=== PATIENT | male | born 1975 | race Caucasian/White ===

== ENCOUNTER 2017-01-17 20:15 | Emergency (ER) | payer OTHER ==
[~2017-01-17] VITALS: Ht 180.3 cm; Wt 96.0 kg
[~2017-01-17 20:15] MED LIST: ACYC-57 PO; ASPI81TA28 PO; CALC-354 PO; CEFU500T16 PO; CHOL1TAB42 PO; CLOP1TAB15 PO; FLUC100T4 PO; LABE1TAB28 PO; MELA1TAB5 PO; MULT-506 PO; MYCO500T4 PO; OMEP40CA PO; SULF1TAB92 PO; TAMS0.4C38 PO; TOPI200T14 PO; TOPI50TA24 PO
[2017-01-17 20:19] VITALS: TEMP 36.5; Ht 180.3 cm; Wt 96.0 kg
[2017-01-17] MEDS ORDERED: VERA240T20 PO (20:32)
[2017-01-17] MEDS ORDERED: OMEG10002 PO (20:32)
[2017-01-17] MEDS ORDERED: TACR1CAP PO (20:32)
[2017-01-17] MEDS ORDERED: PRED-301 PO (20:32)
[2017-01-17] MEDS ORDERED: EZET10TA63 PO (20:32)
[2017-01-17] MEDS ORDERED: APIX1TAB PO (20:32)
[2017-01-17] MEDS ORDERED: SODI650T8 PO (20:32)
[2017-01-17] MEDS ORDERED: CYAN100T PO (20:32)
[2017-01-17] MEDS ORDERED: FLV400 PO (20:32)
[2017-01-17] MEDS ORDERED: VERA120T2 PO (20:32)
[2017-01-17] MEDS ORDERED: MAGN400T6 PO (20:32)
[2017-01-17] MEDS ORDERED: PYRI1TAB40 PO (20:32)
[2017-01-17] MEDS ORDERED: DOCU100C31 PO (20:32)
[2017-01-17] MEDS ORDERED: SODIUM CHLORIDE 0.9% 1000ML 1,000 ML IV STA (21:20)
[2017-01-17 21:30] LABS: HEMATOCRIT 41.2 % (42-52); MEAN CELL VOLUME 85.1 fL (80-100); MEAN CORPUSCULAR HGB CONC 30.6 g/dl (32-36); MEAN PLATELET VOLUME 9.5 fL (7.4-10.4); PLATELET COUNT 204 K/uL (130-400); RED BLOOD COUNT 4.84 M/uL (4.7-6.1)
[2017-01-17 21:37] LABS: ALT/SGPT 31 U/L (12-78); BLOOD UREA NITROGEN 19 mg/dl (7-18); BUN/CREATININE RATIO 11.3 (10-20); CARBON DIOXIDE 18 mmol/L (21-32); CHLORIDE 109 mmol/L (98-107); GLUCOSE 98 mg/dl (70-99); MAGNESIUM 1.9 mg/dl (1.8-2.4); POTASSIUM 3.4 mmol/L (3.5-5.1); SODIUM 140 mmol/L (136-145)
[2017-01-17 21:40] LABS: ALKALINE PHOSPHATASE 72 U/L (45-117); AST/SGOT 15 U/L (15-37)
[2017-01-17 21:47] LABS: URINE APPEARANCE CLEAR (CLEAR); URINE BILIRUBIN NEG (NEG); URINE COLOR YELLOW; URINE NITRITE NEG (NEG); URINE PH 7.5 (4.5-7.5); URINE SPECIFIC GRAVITY 1.006 (1.000-1.030); UROBILINOGEN NEG (NEG)
[2017-01-17 21:51] LABS: MANUAL MICROSCOPIC REQUIRED? NO; REVIEW REQ? NO
[2017-01-17 21:56] LABS: CALCIUM 8.4 mg/dl (8.5-10.1)
[2017-01-17 22:02] LABS: BASO % 0.2 %; BASO ABS # 0.01 K/uL (0-0.2); COMPLETE YES; EOS % 1.1 %; IG% 0.2 %; LYMPH ABS # 1.41 K/uL (1.2-3.4); MONO % 8.9 %; NEUT % 59.6 %
[2017-01-17 22:37] VITALS: BP 143/85; PULSE 100; O2SAT 96
--- NOTE | 2017-01-18 21:59 | EMERGENCY ROOM VISIT NOTE ---
ED Visit Note First contact with patient: 21:07 Chief Complaint: Nausea, vomiting, fatigue and shaking. History of Present Illness: Mr. Obrien is a 41-year-old white male who ambulates into the ED accompanied by his complaining of vomiting, fatigue and sweating. Historically patient is status post kidney transplant from October 2016 and has been doing well postoperatively. Patient reports his symptoms started approximately 2 hours before he arrived in the emergency department. He reports he became nauseated and vomited and then went out to mow the lawn. reports while he was mowing the lawn neighbors noted that he was staggering and was not able to walk straight. They go on to report that he went into the garage and then they saw him lying on the ground; they were unsure if he had a syncopal episode or he lay himself on the ground. reports immediately after this occurred she came home and he was lying on the floor of the garage and was sweaty. He reports he felt lightheaded but he did not pass out and laid himself on the floor of the garage. immediately brought the patient to the hospital for further evaluation and care. Patient reports this was a normal day for him until the symptoms started. He reports he has weekly labs done for his transplant and they have all been normal ; tomorrow is his next laboratory testing. Patient has not taken anything for his symptoms prior to arrival at the hospital and he denies fevers, skin eruptions, skin color changes, headache, visual changes, hearing changes, difficulty speaking, difficulty swallowing, difficulty coordinating body movements, upper respiratory tract symptoms, chest pain, shortness of breath, cough, wheezing, dependent edema, abdominal pain, bloody vomitus, diarrhea, constipation, rectal bleeding, black/tarry stools, urinary symptoms, hematuria, extremity weakness/numbness/tingling. After excess the patient and was doing his physical examination and noted he had alcohol on his breath. I did call his out and she reported she did ask him if he was drinking today and he said no. When I question the patient he also said no he was not drinking alcohol today. Review of Systems: As noted above in history of present illness. All body systems were reviewed and found to be negative as noted above. Past Medical History: Hypertension, status post kidney transplant, left lower leg DVT, pulmonary embolism and left wrist fistula. Current Medications: Medications Dose Route/Sig Max Daily Dose Days Date Category Dose Instructions Docusate Sodium 100 Mg Cap 100 Mg PO BID 01/17/17 Reported Eliquis (Apixaban) 2.5 Mg Tab 2.5 Mg PO BID 01/17/17 Reported Folic Acid 400 Mcg Tab 800 Mcg PO HS 01/17/17 Reported Vitamin B-12 (Cyanocobalamin) 100 Mcg Tab 100 Mcg PO DAILY 01/17/17 Reported Vitamin B6 (Pyridoxine HCl) 50 Mg Tab 40 Mg PO HS 01/17/17 Reported Fish Oil ([place]-3 Fatty Acids) 1,000 Mg Cap 1,000 Mg PO QPM 01/17/17 Reported Zetia (Ezetimibe) 10 Mg Tab 10 Mg PO QPM 01/17/17 Reported Sodium Bicarbonate 650 Mg Tab 1,950 Mg PO BID 01/17/17 Reported Calan Sr Ext Rel (Verapamil HCl) 240 Mg Tabcr 240 Mg PO QPM 01/17/17 Reported Calan Sr Ext Rel (Verapamil HCl) 120 Mg Tabcr 120 Mg PO QAM 01/17/17 Reported Prograf (Tacrolimus) 1 Mg Cap 3 Mg PO BID 01/17/17 Reported Prednisone 5 Mg Tab 5 Mg PO QAM 01/17/17 Reported Prilosec (Omeprazole) 40 Mg Capcr 80 Mg PO DAILY 08/12/16 Reported Kp Melatonin (Melatonin) 3 Mg Tab 1 Tab PO HS 08/12/16 Reported Caltrate 600+D (Calcium Carbonate-Cholecalcife) 1 Tab Tab 1 Tab PO DAILY 08/12/16 Reported Flomax (Tamsulosin Hcl) 0.4 Mg Cap 0.4 Mg PO HS 08/12/16 Reported Multivitamin (Multivitamins) Tab 1 Tab PO DAILY 08/12/16 Reported Aspirin Ec (Aspirin) 81 Mg Tab 81 Mg PO DAILY 08/12/16 Reported Cellcept (Mycophenolate Mofetil) 500 Mg Tab 1,000 Intunit PO DAILY 08/12/16 Reported Topamax (Topiramate) 50 Mg Tab 50 Mg PO BID 12/05/14 Reported total dose 250mg Vitamin D (Cholecalciferol) 5,000 Unit Tab 1,000 Units PO QAM 12/05/14 Reported Topamax (Topiramate) 200 Mg Tab 200 Mg PO BID 12/05/14 Reported total dose 250mg Allergies to Medications: Amitriptyline, Celebrex and tramadol. Social History: Patient is currently employed; he lives with his and feels safe in his home environment; he admits to tobacco and alcohol use. Physical Examination: Vital Signs: Date Time Temp Pulse Resp B/P Pulse Ox O2 Delivery O2 Flow Rate FiO2 01/17/17 22:37 100 18 143/85 96 01/17/17 21:31 86 01/17/17 21:26 89 18 138/79 97 Room Air 96 132/82 94 132/80 01/17/17 20:19 36.5 91 20 160/98 100 Room Air GENERAL: 41-year-old male in mild distress due to symptoms, nontoxic-appearing, afebrile and hemodynamically stable. NEUROLOGICAL: Awake, alert and oriented to person, place and time. Answering questions appropriately and following commands. Good hand eye coordination. No focal motor or sensory deficits. Good short-term and long-term recall. Cranial nerves II through XII grossly intact. Difficulty spelling in counting backwards. Speech was slightly's slurred and although his responses were appropriate they were slightly delayed. No facial droop was seen. SKIN: Warm, dry and pink. No soft tissue eruptions or trauma noted. HEENT: Atraumatic and normocephalic. PERRLA. EOMI 2-3 beats of nystatin this was noted. Sclera mildly injected and conjunctiva pink. Funduscopic examination was unremarkable with a normal-appearing optic disc and no signs of increased intracranial pressure. No drainage from naris. Oral cavity moist and pink. Pharynx is nonerythematous or edematous. Airway is patent. No lymphadenopathy. Trachea midline. No jugular venous distention. No carotid bruits. BACK: No tenderness over the bony cervical, thoracic and lumbar spine. No meningismus. No CVA tenderness. THORAX: Lungs sounds are clear to auscultation and equal bilaterally with symmetrical chest wall. No wheezing, rales or rhonchi. No crepitus, tenderness , subcutaneous air or deformities noted. HEART: Regular rate and rhythm. No gallops, rubs or murmurs are appreciated. ABDOMEN: Flat, soft and nontender. Positive bowel sounds in all quadrants. No guarding, rigidity or organomegaly. EXTREMITIES: Moves all extremities well on command and with purpose. All distal neurovascular statuses are intact and equal bilaterally. No calf tenderness or cords. ED Course: Patient is assessed as noted above. Laboratory Testing: Test 01/17/17 21:00 01/17/17 22:00 Range/Units White Blood Count 4.70 4.8-10.8 K/uL Red Blood Count 4.84 4.7-6.1 M/uL Hemoglobin 12.6 14.0-18.0 g/dL Hematocrit 41.2 42-52 % Mean Corpuscular Volume 85.1 80-100 fL Mean Corpuscular Hemoglobin 26.0 25-34 pg Mean Corpuscular Hemoglobin Concent 30.6 32-36 g/dl Platelet Count 204 130-400 K/uL Mean Platelet Volume 9.5 7.4-10.4 fL Neutrophils (%) (Auto) 59.6 % Lymphocytes (%) (Auto) 30.0 % Monocytes (%) (Auto) 8.9 % Eosinophils (%) (Auto) 1.1 % Basophils (%) (Auto) 0.2 % Neutrophils # (Auto) 2.80 1.4-6.5 K/uL Lymphocytes # (Auto) 1.41 1.2-3.4 K/uL Monocytes # (Auto) 0.42 0.11-0.59 K/uL Eosinophils # (Auto) 0.05 0-0.5 K/uL Basophils # (Auto) 0.01 0-0.2 K/uL RDW Standard Deviation 42.9 36.4-46.3 fL RDW Coefficient of Variation 13.9 11.5-14.5 % Immature Granulocyte % (Auto) 0.2 % Immature Granulocyte # (Auto) 0.01 0.00-0.02 K/uL Urine Color YELLOW Urine Appearance CLEAR CLEAR Urine pH 7.5 4.5-7.5 Urine Specific [place] 1.006 1.000-1.030 Urine Protein NEG NEG Urine Glucose (UA) NEG NEG Urine Ketones NEG NEG Urine Occult Blood NEG NEG Urine Nitrite NEG NEG Urine Bilirubin NEG NEG Urine Urobilinogen NEG NEG Urine Leukocyte Esterase NEG NEG Sodium Level 140 136-145 mmol/L Potassium Level 3.4 3.5-5.1 mmol/L Chloride Level 109 98-107 mmol/L Carbon Dioxide Level 18 21-32 mmol/L Anion Gap 13.0 3-11 mmol/L Blood Urea Nitrogen 19 7-18 mg/dl Creatinine 1.70 0.60-1.40 mg/dl Est Creatinine Clear Calc Drug Dose 67.6 ml/min Estimated GFR () 56.8 Estimated GFR (Non- 49.0 BUN/Creatinine Ratio 11.3 10-20 Random Glucose 98 70-99 mg/dl Calcium Level 8.4 8.5-10.1 mg/dl Magnesium Level 1.9 1.8-2.4 mg/dl Total Bilirubin 0.2 0.2-1 mg/dl Direct Bilirubin < 0.1 0-0.2 mg/dl Aspartate Amino Transf (AST/SGOT) 15 15-37 U/L Alanine Aminotransferase (ALT/SGPT) 31 12-78 U/L Alkaline Phosphatase 72 45-117 U/L Total Protein 6.6 6.4-8.2 gm/dl Albumin 4.0 3.4-5.0 gm/dl Lipase 109 73-393 U/L Ethyl Alcohol mg/dL 211.0 0-3 mg/dl Patient was hydrated with normal saline. Patient was reassessed multiple times during his stay in the emergency department. Patient's case was reviewed with Dr. Ferreira; we agreed on diagnostic approach, treatment, disposition and plan. Patient and are educated about meetaight's findings and instructed on his treatment plan; they verbalizes understanding and agreement with this plan. Clinical Impression: Acute alcohol intoxication. Decision-Making: Initially my differential diagnosis I considered intracranial bleed/swelling, kidney rejection, uremia, kidney failure, and other causes. Disposition: Patient discharged home in stable condition accompanied by his ; prior to departure he was reassessed and subjectively reported he was pain and symptom-free. Plan: Patient was encouraged to avoid alcohol use for the next 12 hours. Patient was encouraged to stay well-hydrated with increased clear fluids. Patient was encouraged to use 650 mg of acetaminophen as needed for pain. Patient was encouraged to follow-up with his primary care provider for recheck as needed in the next 2-3 days. Patient was encouraged return the ED for worsening symptoms, uncontrolled vomiting, any uncontrolled pain or any new/concerning symptoms.
== END 2017-01-17 22:37 | disposition home or self-care (01) ==
LOC: C.EDB 20:16 → C.EDC 22:37
DX: F10.129 Alcohol abuse with intoxication, unspecified (principal); Z94.0 Kidney transplant status; I10 Essential (primary) hypertension; Z86.718 Personal history of other venous thrombosis and embolism; Z86.711 Personal history of pulmonary embolism; Z72.0 Tobacco use; Z79.899 Other long term (current) drug therapy

== ENCOUNTER → 2017-08-15 | Outpatient (CLI) | payer OTHER ==
[~2017-08-15] MED LIST changes: -ACYC-57 PO; +APIX1TAB PO; -CEFU500T16 PO; -CLOP1TAB15 PO; +CYAN100T PO; +DOCU100C31 PO; +EZET10TA63 PO; -FLUC100T4 PO; +FLV400 PO; -LABE1TAB28 PO; +OMEG10002 PO; +PRED-301 PO; +PYRI1TAB40 PO; +SODI650T8 PO; -SULF1TAB92 PO; +TACR1CAP PO; +VERA120T2 PO; +VERA240T20 PO
== END | disposition home or self-care (01) ==
LOC: C.LAB 14:40
DX: Z02.83 Encounter for blood-alcohol and blood-drug test (principal)

== ENCOUNTER 2017-12-13 00:32 | Emergency (ER) | payer OTHER ==
[~2017-12-13] VITALS: Ht 182.9 cm; Wt 104.9 kg
[2017-12-13 00:37] VITALS: TEMP 36.8; Ht 182.9 cm; Wt 104.9 kg
--- NOTE | 2017-12-13 00:56 | EMERGENCY ROOM VISIT NOTE ---
History Report prepared by Sundeep: Shannon Nunez Under the Supervision of: Marty MeehanO. First contact with patient: 00:41 Chief Complaint: FALL Stated Complaint: FELL AND HIT HEAD, PASSED OUT History of Present Illness The patient is a 42 year old male who presents to the Emergency Room with complaints of a persistent headache from a fall that occurred about 6 hours ago. The patient rates his pain a 4/10 in severity. He notes he missed the first step when he was going down the stairs to do laundry. He states he hurt his right elbow and head. He notes he passed out when he hit his head. He reports he has a headache. He notes he remembers hitting his head and he saw stars. He states his found him around 6:30 last night in a puddle of blood at the bottom of stairs. The patient notes he felt fine throughout the day. No recent illness. He denies any dizziness prior to fall or currently. He states he has chills. His friend states he had the heat blasting in the car but the patient was still cold. The patient had a kidney transplant in 2016. The patient is on blood thinners. Source of History: patient Onset: 6 hours ago Position: head Symptom Intensity: 4/10 Timing: other (persistent) Associated Symptoms: + chills Note: Additional symptoms: right elbow pain. Review of Systems See HPI for pertinent positives & negatives. A total of 10 systems reviewed and were otherwise negative. Past Medical & Surgical Medical Problems: (1) Anemia of chronic renal failure, stage 4 (severe) (2) ARF (acute renal failure) (3) CKD (chronic kidney disease) stage 4, GFR 15-29 ml/min (4) Dyslipidemia (5) Generalized seizure disorder (6) HTN (hypertension) (7) Membranous glomerulonephritis with nephrosis Surgical Problems: (1) H/O knee surgery Family History Cancer Diabetes mellitus Gallbladder disease Heart disease Hypertension Kidney disease Kidney stones Lung disease Seizures Social History Smoking Status: Never Smoker Drug Use: none Marital Status: Housing Status: unknown Occupation Status: employed Current/Historical Medications Scheduled Apixaban (Eliquis), 2.5 MG PO BID Aspirin (Aspirin Ec), 81 MG PO 3XWK Calcium Carbonate-Cholecalcife (Caltrate 600+D), 1 TAB PO HS Cholecalciferol (D3-1000), 1,000 UNITS PO QAM Clonazepam (Klonopin), 1 MG PO HS Cyanocobalamin (Vitamin B-12), 100 MCG PO HS Docusate Sodium (Docusate Sodium), 100 MG PO BID Ezetimibe (Zetia), 10 MG PO HS Folic Acid (Folic Acid), 800 MCG PO HS Lamotrigine (Lamotrigine Er), 600 MG PO HS Multivitamin (Multivitamin), 1 TAB PO QAM Mycophenolate Mofetil (Mycophenolate Mofetil), 750 MG PO BID [place]-3 Fatty Acids (Fish Oil), 1,000 MG PO HS Omeprazole (Prilosec), 40 MG PO BID Prednisone (Prednisone), 5 MG PO QAM Pyridoxine HCl (Vitamin B6), 40 MG PO HS Sertraline Hcl (Zoloft), 100 MG PO HS Sodium Bicarbonate (Sodium Bicarbonate), 1,950 MG PO TID Tacrolimus (Prograf), 2 MG PO BID Tamsulosin Hcl (Flomax), 0.4 MG PO QPM Verapamil Sust Rel (Calan Sr Ext Rel), 120 MG PO QAM Verapamil Sust Rel (Calan Sr Ext Rel), 240 MG PO QPM Allergies Coded Allergies: Celecoxib (Verified Allergy, Severe, HIVES, 12/13/17) Tramadol (Verified Allergy, Severe, SEIZURE, 12/13/17) Amitriptyline (Verified Allergy, Intermediate, "CAN'T URINATE", 12/13/17) Physical Exam Vital Signs Date Time Temp Pulse Resp B/P (MAP) Pulse Ox O2 Delivery O2 Flow Rate FiO2 12/13/17 03:16 97 18 125/77 98 12/13/17 01:48 81 16 129/73 94 Room Air 12/13/17 01:44 78 12/13/17 00:37 36.8 83 18 135/87 98 Room Air Physical Exam GENERAL: alert, well appearing, well nourished, no distress, non-toxic HEAD: 2 cm superficial laceration as well as contusion noted to right occipital region. EYE EXAM: normal conjunctiva, PERRL and EOM's grossly intact EARS: no hemotympanum. OROPHARYNX: no exudate, no erythema, lips, buccal mucosa, and tongue normal and mucous membranes are moist NECK: supple, no nuchal rigidity, no adenopathy, non-tender LUNGS: Clear to auscultation. Normal chest wall mechanics, no w/r/r HEART: no murmurs, S1 normal and S2 normal CHEST: no chest wall tenderness, no crepitus, no ecchymosis ABDOMEN: abdomen soft, non-tender, normo-active bowel sounds, no masses, no rebound or guarding. Small ecchymosis noted RLQ over area of prior transplant. BACK: Back is symmetrical on inspection and there is no deformity, no midline tenderness, no CVA tenderness. No ecchymosis from trauma. SKIN: no rashes/sores, no petechia UPPER EXTREMITIES: Pain and swelling noted to right olecranon, mildly decreased range of motion more pronounced with supination, no other right upper extremity trauma or deformity, proximal left upper extremity small contusion noted in the area of biceps, full range of motion of the left upper extremity. LOWER EXTREMITIES: No obvious trauma, full range of motion. Nml pulses. PELVIS: stable. NEURO EXAM: fine tremor, states this is chronic and secondary to medications. CN II-XII grossly intact, nmll gait, no facial droop, nml speech, nml sensory and motor exam. Medical Decision & Procedures ER Provider Diagnostic Interpretation: Radiology results have been interpreted by the radiologist and reviewed by me. CT HEAD: No intracranial hemorrhage, mass, or shift in midline structure. Small scalp hematoma overlying the posterior occiput. Calvarium is intact. Paranasal sinuses and mastoid air cells are clear. CT C SPINE: No evidence of fracture or subluxation. CT CHEST Without Contrast: No evidence of acute intrathoracic injury. Right basilar atelectasis versus scarring. CT ABDOMEN/PELVIS Without Contrast: No acute findings in the abdomen or pelvis. Right lower quadrant renal transplant to hydronephrosis. [place] kidneys are atrophic. Subcutaneous stranding along the right lateral ventral abdominal wall, possible due to recent injury. ELBOW XRAY: No acute fracture or dislocation. Medications Administered Medications (Trade) Dose Ordered Sig/[place] Route Start Time Stop Time Status Last Admin Dose Admin Acetaminophen (Tylenol Tab) 1,000 mg NOW STAT PO 12/13/17 02:42 12/13/17 02:43 DC 12/13/17 02:50 1,000 MG Procedure Location: superficial Total length: 2cm Complexity: simple Verbal consent was obtained after the risks and benefits were explained, including but not limited to bleeding, scarring, infection, pain, and bone/joint /nerve damage. At this time, the risks of the procedure are less than the risks of NOT performing the procedure. A time out was taken and the correct patient and site identified. The target area was anesthetized with 60 ml of 1% lidocaine with epinephrine. Copious irrigation was performed using 60ml. The wound was explored for foreign bodies and none found. Examination revealed no injury to deep structures such as tendons, bone, or significant blood vessels. Debridement was not performed. The wound edges were approximated using, 5-0 nylon, 3 interrupted sutures. Hemostasis and excellent approximation was achieved. Antibacterial ointment and a sterile dressing applied. Detailed wound care instructions and signs and symptoms of infection reviewed with the patient. No complications and the patient tolerated the procedure well. ED Course 0041: The patient was evaluated in room A11B. A complete history and physical exam was performed. 0231: Lidocaine/Epinephrine 20 ml INFIL. 0242: Tylenol Tab 1000 mg PO. 0255: Upon reevaluation, the patient is feeling better. No new or evolving ecchymosis on repeat exam. I discussed the findings and the treatment plan with the patient. He verbalizes agreement and understanding. The patient is ready for discharge. Medical Decision Differential diagnosis: Etiologies such as fracture, dislocation, intra-abdominal, pneumothorax, intrathoracic , intracranial, neurologic, as well as other traumatic pathologies were entertained. Patient already several hours into event at time of presentation. Patient hemodynamically stable throughout. No evidence of evolving or worsening hematoma. Patient able to ambulate here with steady gait. Pt given Tylenol for headache. Patient with no other complaints. Scalp laceration repaired. Patient states tetanus is up-to-date. Patient placed in a sling due to persistent pain at the right elbow, however no fracture or dislocation identified on imaging. Patient cautioned that he may need follow-up with orthopedics if pain persists as he could still have an occult fracture requiring an additional treatment and intervention. Patient verbalized understanding of this. Discussed with patient close follow-up with family doctor to recheck symptoms given significance of his injury and use of anticoagulation as well as his additional medications and chronic comorbidities. Discussed timeframe for removal of stitches. Discussed symptoms to watch and return for, he verbalized understanding was agreeable with plan. Patient with no other complaints other than headache at time of discharge, was well-appearing at time of discharge, tolerated p.o. here and had no nausea or vomiting. Patient with no orthostatic symptoms and not dizzy upon walking here, patient stated he felt steady on his feet. Medication Reconcilliation Current Medication List: was personally reviewed by me Blood Pressure Screening Patient's blood pressure: Elevated blood pressure Blood pressure disposition: Elevated BP felt to be situational Impression Primary Impression: Fall Additional Impressions: Scalp laceration Scalp contusion Abdominal wall contusion CHI (closed head injury) Elbow contusion Scribe Attestation The scribe's documentation has been prepared under my direction and personally reviewed by me in its entirety. I confirm that the note above accurately reflects all work, treatment, procedures, and medical decision making performed by me. Departure Information Dispostion Home / Self-Care Referrals No Doctor, Assigned (PCP) Patient Instructions [facility] Additional Instructions Please continue regular medications as prescribed, please eat and drink normally. Please exercise extra caution over the next several days as you have sustained an injury to your head. You may exhibit signs of a concussion including headaches, dizziness, vision changes, trouble concentrating, or decreased appetite. If your symptoms are persistent or worsening instead of getting better, please return the emergency room. If you notice new bruising or have bleeding from any source, please return the emergency room. Please follow up with your family doctor as precaution to recheck your injuries and make sure they are improving. If you have persistent elbow pain, please follow- up with orthopedics for additional evaluation and possible repeat imaging. You may use the sling as needed. Please use Tylenol for headaches. You have 3 stitches in the back of your head. These need to be removed in one week. Problem Qualifiers Primary Impression: Fall Encounter type: initial encounter Qualified Codes: W19.XXXA - Unspecified fall, initial encounter Additional Impressions: Scalp laceration Encounter type: initial encounter Qualified Codes: S01.01XA - Laceration without foreign body of scalp, initial encounter Scalp contusion Encounter type: initial encounter Qualified Codes: S00.03XA - Contusion of scalp, initial encounter Abdominal wall contusion Encounter type: initial encounter Qualified Codes: S30.1XXA - Contusion of abdominal wall, initial encounter CHI (closed head injury) Encounter type: initial encounter Qualified Codes: S09.90XA - Unspecified injury of head, initial encounter Elbow contusion Encounter type: initial encounter Laterality: right Qualified Codes: S50.01XA - Contusion of right elbow, initial encounter
[2017-12-13] MEDS ORDERED: CHOLTAB9 PO (02:09)
[2017-12-13] MEDS ORDERED: SERT1TAB68 PO (02:09)
[2017-12-13] MEDS ORDERED: MYCO250C7 PO (02:09)
[2017-12-13] MEDS ORDERED: OMEP40CA41 PO (02:09)
[2017-12-13] MEDS ORDERED: CLON1TAB3 PO (02:09)
[2017-12-13] MEDS ORDERED: LAMO1TAB79 PO (02:09)
[2017-12-13] MEDS ORDERED: LIDO/EPINEPHRINE/SOD BICARB 20 ML VIAL INFIL ONE (02:31)
[2017-12-13] MEDS ORDERED: ACETAMINOPHEN 500 MG TAB PO STA (02:42)
[2017-12-13 03:16] VITALS: BP 125/77; PULSE 97; O2SAT 98
--- NOTE | 2017-12-13 07:32 | DIAGNOSTIC IMAGING REPORT ---
R ELBOW MIN 3 VIEWS ROUTINE CLINICAL HISTORY: 42 years-old Male presenting with trauma, fall. TECHNIQUE: Frontal, oblique, and lateral views of the right elbow were obtained. COMPARISON: None. FINDINGS: Elbow joint intact. No evidence of an elbow joint effusion. No acute fracture or malalignment. No advanced degenerative change. Mild soft tissue swelling over the olecranon. IMPRESSION: 1. No acute osseous injury of the right elbow. 2. Mild soft tissue swelling over the olecranon could suggest olecranon bursitis, likely in the posttraumatic setting. Electronically signed by: Vishnu Field M.D. 12/13/2017 7:30 AM Dictated Date/Time: 12/13/2017 6:47 AM
--- NOTE | 2017-12-14 09:35 | DIAGNOSTIC IMAGING REPORT ---
CT OF THE CHEST WITHOUT IV CONTRAST CLINICAL HISTORY: trauma on eliquis, s/p renal transplant COMPARISON STUDY: Chest CT May 11, 2014. CT DOSE: 1631.65 mGycm TECHNIQUE: Axial images of the chest were obtained without IV contrast. Images were reviewed in the axial, sagittal, and coronal planes. IV contrast was not administered for this examination. A dose lowering technique was utilized adhering to the principles of ALARA. FINDINGS: Evaluation of the thoracic aorta is suboptimal on this unenhanced exam but there is no mediastinal hematoma. The size of the heart is normal. There is no pericardial effusion. There is no thoracic lymphadenopathy. No pneumothorax or contusion is present. Subpleural linear right lower lobe opacity suggests atelectasis or scarring. There is no pulmonary contusion. No acute rib or thoracic spine fractures are identified. The abdomen and pelvis will be reported separately. IMPRESSION: No acute traumatic findings within the chest on unenhanced exam. Electronically signed by: Gerardo Parish M.D. 12/13/2017 6:32 AM Dictated Date/Time: 12/13/2017 6:24 AM
--- NOTE | 2017-12-14 09:35 | DIAGNOSTIC IMAGING REPORT ---
CT HEAD WITHOUT CONTRAST (CT) CLINICAL HISTORY: Head trauma. Patient on blood thinners. COMPARISON STUDY: No previous studies for comparison. TECHNIQUE: Axial CT of the brain is performed from the vertex to the skull base. IV contrast was not administered for this examination. A dose lowering technique was utilized adhering to the principles of ALARA. CT DOSE: 729.78 mGycm FINDINGS: No intra or extra-axial mass lesions are visualized. There is no CT evidence of acute cortical infarction. There is no evidence of midline shift. There is no acute hemorrhage. No calvarial fractures are visualized. There is a right parieto-occipital scalp contusion. There is no evidence of pathologic ventricular dilatation. There is no evidence of acute sinusitis IMPRESSION: No acute intracranial findings Electronically signed by: Colt Mccall M.D. 12/13/2017 6:31 AM Dictated Date/Time: 12/13/2017 6:30 AM
--- NOTE | 2017-12-14 09:35 | DIAGNOSTIC IMAGING REPORT ---
CT OF THE CERVICAL SPINE CLINICAL HISTORY: Neck pain status post trauma COMPARISON STUDY: No previous studies for comparison. CT DOSE: 432.03 mGycm TECHNIQUE: CT scan of the cervical spine was performed from the skull base to the thoracic inlet. Images are reviewed in the axial, sagittal, and coronal planes. IV contrast was not administered for this examination. A dose lowering technique was utilized adhering to the principles of ALARA. FINDINGS: The visualized portions of the lung apices reveal no evidence of pneumothorax. The prevertebral soft tissues are normal. No fractures or subluxations are visualized. There are mild degenerative changes IMPRESSION: No evidence of acute fracture or traumatic subluxation. Electronically signed by: Colt Mccall M.D. 12/13/2017 6:33 AM Dictated Date/Time: 12/13/2017 6:32 AM
--- NOTE | 2017-12-14 09:35 | DIAGNOSTIC IMAGING REPORT ---
CT OF THE ABDOMEN AND PELVIS WITHOUT CONTRAST CLINICAL HISTORY: trauma on eliquis, s/p renal transplant COMPARISON STUDY: CT of the abdomen and pelvis May 11, 2014 and renal ultrasound May 12, 2014. TECHNIQUE: Axial images of the abdomen and pelvis were obtained without IV contrast. Images were reviewed in the axial, sagittal, and coronal planes. A dose lowering technique was utilized adhering to the principles of ALARA. FINDINGS: No hemoperitoneum or pneumoperitoneum is present. Evaluation of the abdomen and pelvis is suboptimal on this unenhanced examination. There is no evidence of traumatic injury to the liver, spleen, adrenal glands or pancreas. Both [place] kidneys are atrophic. A right lower quadrant renal allograft is within normal limits. No perigraft fluid collection is present. There is no graft hydronephrosis. There is mild stranding of the right lower quadrant subcutaneous tissues. No lymphadenopathy is present. Appendix is normal. No acute lumbar spine or pelvic fracture is identified. There is moderate osteoarthritis of the right hip and mild to moderate osteoarthritis of the left hip. IMPRESSION: 1. No evidence of traumatic injury to the solid abdominal viscera although sensitivity diminished on this unenhanced exam. 2. No hemoperitoneum or pneumoperitoneum. 3. Unremarkable unenhanced appearance of the right lower quadrant renal allograft. 4. Mild subcutaneous stranding of the right lower anterior abdominal wall. This is age indeterminate may reflect a small contusion or scarring. Electronically signed by: Gerardo Parish M.D. 12/13/2017 6:36 AM Dictated Date/Time: 12/13/2017 6:32 AM
== END 2017-12-13 03:10 | disposition home or self-care (01) ==
LOC: C.EDB 00:33 → C.EDA 03:10
DX: S01.01XA Laceration without foreign body of scalp, initial encounter (principal); S00.03XA Contusion of scalp, initial encounter; S30.1XXA Contusion of abdominal wall, initial encounter; S09.90XA Unspecified injury of head, initial encounter; S50.01XA Contusion of right elbow, initial encounter; W10.9XXA Fall (on) (from) unspecified stairs and steps, initial encounter; Y93.E2 Activity, laundry; S40.022A Contusion of left upper arm, initial encounter; N18.4 Chronic kidney disease, stage 4 (severe); D63.1 Anemia in chronic kidney disease; E78.5 Hyperlipidemia, unspecified; I12.9 Hypertensive chronic kidney disease with stage 1 through stage 4 chronic kidney disease, or unspecified chronic kidney disease; G40.909 Epilepsy, unspecified, not intractable, without status epilepticus; Z79.01 Long term (current) use of anticoagulants; Z79.82 Long term (current) use of aspirin; Z88.8 Allergy status to other drugs, medicaments and biological substances; Z88.5 Allergy status to narcotic agent; Z94.0 Kidney transplant status

== ENCOUNTER 2018-01-10 09:39 | Observation (INO) | payer OTHER ==
[~2018-01-10] VITALS: Ht 182.9 cm; Wt 114.5 kg
[~2018-01-10 09:39] MED LIST changes: -CHOL1TAB42 PO; +CHOLTAB9 PO; +CLON1TAB3 PO; +LAMO1TAB79 PO; -MELA1TAB5 PO; +MYCO250C7 PO; -MYCO500T4 PO; -OMEP40CA PO; +OMEP40CA41 PO; +SERT1TAB68 PO; -TOPI200T14 PO; -TOPI50TA24 PO
[2018-01-10 10:22] LABS: BASO % 0.3 %; BASO ABS # 0.02 K/uL (0-0.2); EOS % 1.1 %; EOS ABS # 0.08 K/uL (0-0.5); HEMATOCRIT 40.5 % (42-52); HEMOGLOBIN 13.1 g/dL (14.0-18.0); IG# 0.02 K/uL (0.00-0.02); LYMPH % 12.3 %; LYMPH ABS # 0.87 K/uL (1.2-3.4); MEAN CELL VOLUME 83.5 fL (80-100); MEAN CORPUSCULAR HGB CONC 32.3 g/dl (32-36); MEAN PLATELET VOLUME 9.3 fL (7.4-10.4); MONO % 9.1 %; MONO ABS # 0.64 K/uL (0.11-0.59); NEUT % 76.9 %; NEUT ABS # 5.43 K/uL (1.4-6.5); PLATELET COUNT 173 K/uL (130-400); RED CELL DISTRIBUTION WIDTH CV 15.5 % (11.5-14.5); RED CELL DISTRIBUTION WIDTH SD 46.9 fL (36.4-46.3); WHITE BLOOD COUNT 7.06 K/uL (4.8-10.8)
[2018-01-10 10:29] LABS: ISTAT CREATININE 1.8 mg/dl (0.6-1.3); ISTAT IONIZED CALCIUM 1.18 mmol/l (1.12-1.32); ISTAT POTASSIUM 4.2 mEq/L (3.3-5.0)
[2018-01-10] MEDS ORDERED: MoRPHine SULFATE 4 MG/ML 1 ML CARP\\VIAL IV STA ×2 (10:29→12:47)
[2018-01-10] MEDS ORDERED: ONDANSETRON INJ 2 MG/ML 2 ML VIAL IV STA (10:29)
[2018-01-10 10:30] LABS: INR 1.1 (0.9-1.1); PTT PATIENT 26.8 SECONDS (21.0-31.0)
[2018-01-10 10:41] LABS: ALBUMIN 3.9 gm/dl (3.4-5.0); CALCIUM 8.9 mg/dl (8.5-10.1); CREATININE 1.8 mg/dl (0.60-1.40); POTASSIUM 4.1 mmol/L (3.5-5.1)
[2018-01-10 10:44] LABS: TOTAL PROTEIN 7.3 gm/dl (6.4-8.2)
--- NOTE | 2018-01-10 11:06 | DIAGNOSTIC IMAGING REPORT ---
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 A dose lowering technique was utilized adhering to the principles of ALARA. COMPARISON: 12/13/2017 FINDINGS: No fractures. No subluxation. Prevertebral soft tissues and the C1-C2 interval are intact. No pneumothorax. Moderate degenerative change from C6 through T2. This is unchanged. IMPRESSION: No fractures within the cervical spine. Mild degenerative change. No change from the prior study. The above report was generated using voice recognition software. It may contain grammatical, syntax or spelling errors. Electronically signed by: Pranav Stephenson M.D. 01/10/2018 11:05 AM Dictated Date/Time: 01/10/2018 11:03 AM
--- NOTE | 2018-01-10 11:08 | DIAGNOSTIC IMAGING REPORT ---
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 COMPARISON STUDY: Head CT December 13, 2017. TECHNIQUE: Helical axial images of the head were obtained without IV contrast. Automated exposure control was utilized for the study. A dose lowering technique was utilized adhering to the principles of ALARA. FINDINGS: No acute intracranial hemorrhage, midline shift or mass effect is present. Ventricular system is normal. Basilar cisterns are patent. There are no extra-axial collections. Gordon-white differentiation is maintained. There is no calvarial fracture. Mild sinus mucosal thickening is present. IMPRESSION: 1. No acute intracranial findings. 2. No calvarial fracture. Electronically signed by: Gerardo Parish M.D. 01/10/2018 11:07 AM Dictated Date/Time: 01/10/2018 11:02 AM
--- NOTE | 2018-01-10 11:09 | DIAGNOSTIC IMAGING REPORT ---
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 TECHNIQUE: Multidetector CT imaging of the chest was performed without the use of intravenous contrast. IV contrast: None. A dose lowering technique was used consistent with the principles of ALARA (as low as reasonably achievable). COMPARISON: 12/13/2017. CT DOSE (mGy.cm): The estimated cumulative dose is 3799.[address] scans. FINDINGS: Baby Sitter topogram: Left axillary surgical clips noted. On soft tissue windows, normal thyroid and thoracic inlet. No axillary, supraclavicular, or mediastinal lymphadenopathy. Evaluation of the maxim limited without intravenous contrast. Normal aorta. Normal heart size. No pericardial or pleural effusion. Hepatic steatosis. On lung windows, minimal dependent changes likely atelectasis. No other focal nodule or infiltrate. Airways patent. On bone windows, normal osseous structures. IMPRESSION: 1. No acute intrathoracic injury. 2. Hepatic steatosis. Electronically signed by: Vishnu Field M.D. 01/10/2018 11:08 AM Dictated Date/Time: 01/10/2018 11:03 AM
--- NOTE | 2018-01-10 11:18 | DIAGNOSTIC IMAGING REPORT ---
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 COMPARISON STUDY: CT of the abdomen and pelvis December 13, 2017. TECHNIQUE: Axial images of the abdomen and pelvis were obtained without IV contrast. Images were reviewed in the axial, sagittal, and coronal planes. A dose lowering technique was utilized adhering to the principles of ALARA. FINDINGS: The chest CT will be reported separately. No hemoperitoneum or pneumoperitoneum is present. Evaluation of the abdomen and pelvis is suboptimal on this unenhanced exam. However, there is no evidence for traumatic injury to the liver, spleen, adrenal glands, kidneys or pancreas. As before, both [place] kidneys are atrophic. Caliber of small and large bowel are normal. The appearance of the right lower quadrant renal allograft is unchanged. There is no free fluid. Subtle subcutaneous stranding of the right lower quadrant has improved. Residual stranding may reflect scarring. No acute lumbar spine or pelvic fracture is identified. The appendix is normal. There is no lymphadenopathy. IMPRESSION: 1. No evidence of traumatic injury to the solid abdominal viscera although sensitivity diminished on this unenhanced exam. 2. No hemoperitoneum or pneumoperitoneum. 3. Unremarkable unenhanced appearance of the right lower quadrant renal allograft. Electronically signed by: Gerardo Parish M.D. 01/10/2018 11:17 AM Dictated Date/Time: 01/10/2018 11:07 AM
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
--- NOTE | 2018-01-10 11:56 | DIAGNOSTIC IMAGING REPORT ---
L TIBIA/FIBULA 2 VIEWS ROUTINE CLINICAL HISTORY: L grant pain pain COMPARISON: None. DISCUSSION: The bones and joint spaces appear intact. There is no evidence of fracture, dislocation or bony disease. There is no evidence for soft tissue swelling. IMPRESSION: Negative study. The above report was generated using voice recognition software. It may contain grammatical, syntax or spelling errors. Electronically signed by: Pranav Stephenson M.D. 01/10/2018 11:55 AM Dictated Date/Time: 01/10/2018 11:54 AM
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
--- NOTE | 2018-01-10 12:23 | DIAGNOSTIC IMAGING REPORT ---
L VENOUS DOPP LOWER EXT UNILAT CLINICAL HISTORY: L lower extremity edema, hx dvt pain. Edema. TECHNIQUE: Venous Doppler COMPARISON STUDY: None FINDINGS: Normal venous Doppler. Several benign-appearing reactive nodes left groin. IMPRESSION: Normal venous Doppler The above report was generated using voice recognition software. It may contain grammatical, syntax or spelling errors. Electronically signed by: Pranav Stephenson M.D. 01/10/2018 12:22 PM Dictated Date/Time: 01/10/2018 12:22 PM
--- NOTE | 2018-01-10 13:00 | EMERGENCY ROOM VISIT NOTE ---
ED Visit Note First contact with patient: 09:58 The patient was seen and examined with Saji Olivares PA-C. I agree with the history, physical and findings. Please see the note for disposition and details.
[2018-01-10] MEDS ORDERED: ONDANSETRON INJ 2 MG/ML 2 ML VIAL IV PRN (16:30)
[2018-01-10] MEDS ORDERED: DOCUSATE SODIUM 100 MG CAP PO PRN (16:30)
[2018-01-10] MEDS ORDERED: TACROLIMUS 1 MG CAP PO ONE (16:30)
[2018-01-10] MEDS ORDERED: VERAPAMIL HCL 120 MG TABCR PO ONE (16:30)
[2018-01-10] MEDS ORDERED: MYCO250C26 PO (16:36)
--- NOTE | 2018-01-10 16:51 | History and Physical ---
History & Physical Date & Time of Service: January 10, 2018 at 16:43 Chief Complaint: Left Leg Injury, Right Elbow, Right Hip Primary Care Physician: Rk Greenwood M.D. History of Present Illness Source: patient, clinic records, hospital records Patient is a 42-year-old male with a PMH of membranous glomerulonephritis (s/p right kidney transplant in 2016), HTN, HLD, generalized seizure disorder and other medical problems listed below who presents after an accident with his riding lawnmower earlier today. Patient states that he hit on even ground and fell off of lawnmower and machine rolled on top of left lower leg. Also injured R elbow. Denies LOC. Patient was able to lawnmower off and drive himself to the ED for further evaluation. Continues to have 7 out of 10 pain and left lower leg despite receiving morphine in the ED. Denies any pain, fever, chills, lightheadedness, headache, visual changes, CP, SOB, abdominal pain, nausea, vomiting, bowel or bladder changes. PCP is Dr. Greenwood in [place]. Also follows closely with transplant team in [place] at [facility]. Patient is on Eliquis for history of bilateral PE in 2008 and DVT in 2010. Is also on immunosuppressants Prograf and Cellept for kidney transplant. Baseline Cr post-transplant is ~1.7. Past Medical/Surgical History Medical Problems: (1) Anemia of chronic disease Status: Chronic (2) Dyslipidemia Status: Chronic (3) Generalized seizure disorder Status: Chronic (4) GERD (gastroesophageal reflux disease) Status: Chronic (5) HTN (hypertension) Status: Chronic (6) Membranous glomerulonephritis with nephrosis Permanent Comment: s/p R kidney transplant in 2016 at [facility] Status: Chronic Surgical Problems: (1) H/O knee surgery Status: Resolved Family History Cancer Diabetes mellitus Gallbladder disease Heart disease Hypertension Kidney disease Kidney stones Lung disease Seizures Social History Smoking Status: Never Smoker Alcohol Use: socially (1 beer with dinner 5x/week ) Drug Use: none Marital Status: Housing status: lives with family Occupational Status: employed Allergies Coded Allergies: Celecoxib (Verified Allergy, Severe, HIVES, 12/13/17) Shellfish (Unverified Allergy, Severe, THROAT SWELLS SHUT/HIVES, 01/10/18) Amitriptyline (Verified Allergy, Intermediate, "CAN'T URINATE", 12/13/17) Tramadol (Verified Adverse Reaction, Severe, Seizures, 01/10/18) Home Medications Scheduled Apixaban (Eliquis), 2.5 MG PO UD Aspirin (Aspirin Ec), 81 MG PO 3XWK Calcium Carbonate-Cholecalcife (Caltrate 600+D), 1 TAB PO 2100 Cholecalciferol (D3-1000), 1,000 UNITS PO 0430 Clonazepam (Klonopin), 1 MG PO 2100 Cyanocobalamin (Vitamin B-12), 100 MCG PO 2100 Docusate Sodium (Docusate Sodium), 100 MG PO UD Ezetimibe (Zetia), 10 MG PO 2100 Folic Acid (Folic Acid), 800 MCG PO 2100 Lamotrigine (Lamotrigine Er), 600 MG PO 2100 Multivitamin (Multivitamin), 1 TAB PO 0430 Mycophenolate Mofetil (Cellcept), 3 CAP PO UD Boyd-3 Fatty Acids (Fish Oil), 1,000 MG PO 2100 Omeprazole (Prilosec), 40 MG PO UD Prednisone (Prednisone), 5 MG PO QAM Pyridoxine HCl (Vitamin B6), 40 MG PO 2100 Sertraline Hcl (Zoloft), 100 MG PO 2100 Sodium Bicarbonate (Sodium Bicarbonate), 1,950 MG PO UD Tacrolimus (Prograf), 2 MG PO UD Tamsulosin Hcl (Flomax), 0.4 MG PO 1630 Verapamil Sust Rel (Calan Sr Ext Rel), 120 MG PO UD Review of Systems Ten systems reviewed and negative except as noted in the HPI. Physical Exam Vital Signs Date Time Temp Pulse Resp B/P (MAP) Pulse Ox O2 Delivery O2 Flow Rate FiO2 01/10/18 15:08 81 16 155/92 95 Room Air 01/10/18 13:40 89 18 155/88 95 Room Air 01/10/18 12:44 88 18 167/101 94 Room Air 01/10/18 11:15 103 18 173/105 95 Room Air 01/10/18 10:41 95 18 164/114 94 Room Air 01/10/18 09:52 36.6 109 22 158/124 96 Room Air General Appearance: WD/WN, + mild distress Head: normocephalic, atraumatic Eyes: normal inspection, PERRL, sclerae normal ENT: normal ENT inspection, hearing grossly normal, pharynx normal Neck: supple, thyroid normal, trachea midline Respiratory/Chest: chest non-tender, lungs clear, normal breath sounds, no respiratory distress, no accessory muscle use Cardiovascular: regular rate, rhythm, no murmur, normal peripheral pulses Abdomen/GI: non tender, soft, no organomegaly Extremities/Musculoskelatal: normal capillary refill, no pedal edema, + pertinent finding (Large hematoma on medial aspect of left lower leg. R elbow with erythema and edema. Normal ROM. ) Neurologic/Psych: no motor/sensory deficits, alert, normal mood/affect, oriented x 3 Skin: normal color Diagnostics Laboratory Results Results Past 24 Hours Test 01/10/18 10:11 01/10/18 10:15 01/10/18 13:00 Range/Units White Blood Count 7.06 4.8-10.8 K/uL Red Blood Count 4.85 4.7-6.1 M/uL Hemoglobin 13.1 14.0-18.0 g/dL Hematocrit 40.5 42-52 % Mean Corpuscular Volume 83.5 80-100 fL Mean Corpuscular Hemoglobin 27.0 25-34 pg Mean Corpuscular Hemoglobin Concent 32.3 32-36 g/dl Platelet Count 173 130-400 K/uL Mean Platelet Volume 9.3 7.4-10.4 fL Neutrophils (%) (Auto) 76.9 % Lymphocytes (%) (Auto) 12.3 % Monocytes (%) (Auto) 9.1 % Eosinophils (%) (Auto) 1.1 % Basophils (%) (Auto) 0.3 % Neutrophils # (Auto) 5.43 1.4-6.5 K/uL Lymphocytes # (Auto) 0.87 1.2-3.4 K/uL Monocytes # (Auto) 0.64 0.11-0.59 K/uL Eosinophils # (Auto) 0.08 0-0.5 K/uL Basophils # (Auto) 0.02 0-0.2 K/uL RDW Standard Deviation 46.9 36.4-46.3 fL RDW Coefficient of Variation 15.5 11.5-14.5 % Immature Granulocyte % (Auto) 0.3 % Immature Granulocyte # (Auto) 0.02 0.00-0.02 K/uL Prothrombin Time 11.8 9.0-12.0 SECONDS Prothromb Time International Ratio 1.1 0.9-1.1 Activated Partial Thromboplast Time 26.8 21.0-31.0 SECONDS Partial Thromboplastin Ratio 1.0 Sodium Level 134 136-145 mmol/L Potassium Level 4.1 3.5-5.1 mmol/L Chloride Level 103 98-107 mmol/L Carbon Dioxide Level 24 21-32 mmol/L Anion Gap 7.0 15.0 16-25 mmol/L Blood Urea Nitrogen 25 7-18 mg/dl Creatinine 1.80 0.60-1.40 mg/dl Est Creatinine Clear Calc Drug Dose 69.8 ml/min Estimated GFR () 52.6 Estimated GFR (Non- 45.4 BUN/Creatinine Ratio 14.0 10-20 Random Glucose 111 70-99 mg/dl Calcium Level 8.9 8.5-10.1 mg/dl Total Bilirubin 0.5 0.2-1 mg/dl Aspartate Amino Transf (AST/SGOT) 17 15-37 U/L Alanine Aminotransferase (ALT/SGPT) 30 12-78 U/L Alkaline Phosphatase 103 45-117 U/L Total Protein 7.3 6.4-8.2 gm/dl Albumin 3.9 3.4-5.0 gm/dl Globulin 3.4 2.5-4.0 gm/dl Albumin/Globulin Ratio 1.1 0.9-2 Bedside Hemoglobin 14.3 14.0-18.0 g/dl Bedside Hematocrit 42 42-52 % Bedside Sodium 136 135-144 mEq/L Bedside Potassium 4.2 3.3-5.0 mEq/L Bedside Chloride 102 101-112 mEq/L Bedside Total CO2 24 24-31 mEq/l Bedside Blood Urea Nitrogen 24 7-18 mg/dl Bedside Creatinine 1.8 0.6-1.3 mg/dl Bedside Glucose (other) 114 70-99 mg/dl Bedside Ionized Calcium (Som) 1.18 1.12-1.32 mmol/l Urine Color YELLOW Urine Appearance CLEAR CLEAR Urine pH 6.5 4.5-7.5 Urine Specific [place] 1.013 1.000-1.030 Urine Protein NEG NEG Urine Glucose (UA) NEG NEG Urine Ketones NEG NEG Urine Occult Blood NEG NEG Urine Nitrite NEG NEG Urine Bilirubin NEG NEG Urine Urobilinogen NEG NEG Urine Leukocyte Esterase NEG NEG Diagnostic Radiology CT OF THE HEAD WITHOUT CONTRAST: IMPRESSION: 1. No acute intracranial findings. 2. No calvarial fracture. CERVICAL SPINE CT W/O: IMPRESSION: No fractures within the cervical spine. Mild degenerative change. No change from the prior study. (CHEST) THORAX CT WITHOUT: IMPRESSION: 1. No acute intrathoracic injury. 2. Hepatic steatosis. CT OF THE ABDOMEN AND PELVIS WITHOUT CONTRAST: IMPRESSION: 1. No evidence of traumatic injury to the solid abdominal viscera although sensitivity diminished on this unenhanced exam. 2. No hemoperitoneum or pneumoperitoneum. 3. Unremarkable unenhanced appearance of the right lower quadrant renal allograft. L TIBIA/FIBULA 2 VIEWS ROUTINE: IMPRESSION: Negative study. R ELBOW MIN 3 VIEWS ROUTINE: IMPRESSION: 1. No acute fracture or joint effusion of the right elbow. 2. Soft tissue swelling over the olecranon which has diminished compared to exam of December 13, 2017. R PELVIS/UNILATERAL HIP 2-3VIEWS: IMPRESSION: 1. No acute fracture within the pelvis or hips. 2. Moderate osteoarthritis of the right hip. L KNEE 3 VIEWS: IMPRESSION: 1. No acute fracture or joint effusion of the left knee. 2. Apparent lower leg soft tissue swelling, partially imaged on this exam. L VENOUS DOPP LOWER EXT UNILAT: IMPRESSION: Normal venous Doppler Impression Assessment and Plan Patient is a 42-year-old male with a PMH of membranous glomerulonephritis (s/p right kidney transplant in 2016), HTN, HLD, generalized seizure disorder and other medical problems listed below who presents after an accident with his riding lawnmower earlier today. Left leg hematoma, R elbow edema 2/2 trauma: -Riding lawnmower rolled over patient's left leg following fall -Head, cervical spine, chest, abd/pelvis CT without acute abnormalities -L tibia/fibula, hips/pelvis XR without acute fracture -R elbow with soft tissue swelling -No LLE DVT -Evaluated by ortho -Non-weight bearing on left leg -Ice, pain control -Will see tomorrow -Plan to hold eliquis, baby aspirin, fish oil Membranous glomerulonephritis: -S/p right kidney transplant in 2016 at [facility] -Close to baseline Cr of 1.7 (currently 1.8) -Gentle IVF resuscitation. Encouraged oral hydration -Cont Prograf, Cellcept, prednisone, sodium bicarb, vitamins -Avoid nephrotoxins when able -Monitor BMP H/o DVT, PE: -LLE ultrasound negative for DVT -Eliquis held in setting of large hematoma, trauma -Plan to restart when appropriate HTN: -Cont verapamil HLD: -Cont Zetia Generalized seizure disorder: -Cont Lamotrigine DVT Ppx: Teds for now. Eliquis held Code status: FULL PCP: Dr. Greenwood ([place]) Dispo: Med/surg observation. Plan to return home once medically stable. Patient seen in collaboration with Dr. Byrne. Please see addendum. 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 Multiple bruise on bilateral arms and torso lower extremity, large hematoma on the left lower leg In the ER multiple imaging studies shows no evidence of fracture or dislocation Hemoglobin stable Patient will be admitted to medical surgical-for pain control Monitor for H&H, leg hematoma CHRONIC KIDNEY DISEASE STATUS POST RENAL TRANSPLANT Renal function approximate baseline Continue outpatient immunosuppressant IV fluids Follow PRP Mari Byrne MD Resuscitation Status VTE Prophylaxis Will order VTE Prophylaxis: Yes
[2018-01-10] MEDS ORDERED: MoRPHine SULFATE 2 MG/ML CARP IV ONE (17:14)
[2018-01-10] MEDS ORDERED: MoRPHine SULFATE 2 MG/ML CARP ONE (17:14)
[2018-01-10] MEDS: MYCOPHENOLATE MOFETIL 250 MG CAP (CELLCEPT) PO ONE ×2 (17:20→19:54)
[2018-01-10 17:35] VITALS: O2SAT 96; Ht 182.9 cm; Wt 114.5 kg
[2018-01-10 18:30] VITALS: BP 157/94; PULSE 77; TEMP 36.6; O2SAT 91
[2018-01-10] MEDS ORDERED: IV FLUIDS COMPLETED PRN (19:15)
[2018-01-10 19:46] LABS: HEMATOCRIT 38.7 % (42-52); HEMOGLOBIN 12.7 g/dL (14.0-18.0); MEAN CORPUSCULAR HEMOGLOBIN 27.3 pg (25-34); MEAN CORPUSCULAR HGB CONC 32.8 g/dl (32-36); MEAN PLATELET VOLUME 9.5 fL (7.4-10.4); PLATELET COUNT 161 K/uL (130-400); RED CELL DISTRIBUTION WIDTH CV 15.1 % (11.5-14.5); RED CELL DISTRIBUTION WIDTH SD 45.7 fL (36.4-46.3); WHITE BLOOD COUNT 5.78 K/uL (4.8-10.8)
[2018-01-10] MEDS ORDERED: SODIUM CHLORIDE 0.9% 1000ML 1,000 ML IV SCH (20:00)
[2018-01-10] MEDS: MoRPHine SULFATE 4 MG/ML 1 ML CARP\\VIAL IV PRN ×2 (20:04→23:55)
[2018-01-10 20:06] LABS: CREATININE 1.65 mg/dl (0.60-1.40)
[2018-01-10 20:07] LABS: CALCIUM 8.4 mg/dl (8.5-10.1); POTASSIUM 3.8 mmol/L (3.5-5.1)
[2018-01-10] MEDS: TAMSULOSIN HCL 0.4 MG CAP PO SCH (20:40)
[2018-01-10] MEDS: SERTRALINE HCL 100 MG TAB PO SCH (20:40)
[2018-01-10] MEDS: CALCIUM 600MG + VIT D 400 IU TAB PO SCH (20:40)
[2018-01-10] MEDS: PYRIDOXINE HCL 50 MG TAB PO SCH (20:41)
[2018-01-10] MEDS: FoLIC ACID TAB 400 MCG TAB PO SCH (20:41)
[2018-01-10] MEDS: CYANOCOBALAMIN 100 MCG TAB (VIT B-12) PO SCH (20:42)
[2018-01-10] MEDS: EZETIMIBE 10MG TAB PO SCH (20:42)
[2018-01-10] MEDS: SODIUM BICARBONATE 650 MG TAB PO SCH (20:42)
[2018-01-10] MEDS: CLONAZEPAM 1 MG TAB PO SCH (20:47)
[2018-01-10] MEDS: ACETAMINOPHEN 500 MG TAB PO PRN (21:00)
--- NOTE | 2018-01-10 22:23 | CONSULTATION REPORT ---
DATE OF CONSULTATION: 01/10/2018 CHIEF COMPLAINT: Left leg injury. HISTORY OF PRESENT ILLNESS: Jaime is a 42-year-old male who we were consulted for evaluation of a crush injury to his left lower leg. He was riding his mower yesterday when this occurred and the mower tipped, landed on his left leg. He was able to push the mower off and get up. He was able to ambulate yesterday. He had some swelling in the calf area posteriorly last night; however, when he woke this morning, swelling was significantly worse and according to ER staff, his swelling has worsened since he has been here in the Emergency Department. He has had pain, difficulty walking, and putting weight on this leg. He has a history of bilateral PEs and a DVT in the left leg and he is on Eliquis as well as aspirin. PAST MEDICAL HISTORY: Stage IV chronic renal failure with history of nephrotic syndrome and kidney transplant, dyslipidemia, seizure disorder, hypertension, left lower extremity DVT, and bilateral PEs. Remaining medical history including surgeries, family history, social history, medications, review of systems were all reviewed. Please refer to the H and P for completeness. MEDICATIONS: Include Eliquis, aspirin, Caltrate, vitamin D3, Klonopin, vitamin B12, docusate, Zetia, folic acid, lamotrigine, multivitamin, fish oil, Prilosec, prednisone, vitamin B6, Zoloft, sodium bicarbonate, Prograf, Flomax, verapamil. ALLERGIES: INCLUDE AMITRIPTYLINE, CELEBREX, SHELLFISH, TRAMADOL. PHYSICAL EXAMINATION: Today, GENERAL: He is alert, oriented, no acute distress. EXTREMITIES: Examination of the left lower extremity: He has swelling, ecchymosis around the calf. He has tenderness to palpation throughout the calf area. He has a small area of posterior calf where there is some bloody drainage, but otherwise the skin is intact. His compartments are swollen and tender, but does not have signs of compartment syndrome at this time. He is able to dorsiflex, plantarflex and move his toes appropriately. He has no pain with passive stretch of his toes. Sensation is intact to touch. DIAGNOSTIC DATA: X-rays were reviewed of his tib-fib which were negative for fracture. Lower extremity ultrasound was also completed which was reported as normal venous Doppler. IMPRESSION: Left lower extremity crush injury with hematoma of his calf. PLAN: He was seen and examined in the Emergency Department today by Dr. Seymour as well. We discussed treatment with him. At this time, he does have a hematoma of his posterior calf mostly. This is mostly limited to the subcutaneous tissues and not the muscle itself. He does not have signs of compartment syndrome or impending compartment syndrome at this time. Would recommend continuing conservative management. No surgical intervention. We did recommend ice and a compressive Jose wrap on this area as well as elevating it. He really should try to minimize putting weight on it to avoid further aggravating this. He is on Eliquis and may continue to swell more which is certainly possible, but has had a history of bilateral PE's. He does have significant trauma to the subcutaneous tissues and may have some necrosis of tissue due to trauma and bleeding but no surgical intervention is clearly going to help this at this time. We discussed the options as far as discharge and keeping his weight off it, ice and elevation and compressive wrap versus admission by the hospitalist service for observation of this hematoma. They are going to look into admission and observation of this as it would be difficult for him getting around on this leg at this point. EVANGELINA
[2018-01-10 23:35] VITALS: BP 125/72; PULSE 83; TEMP 36.5; O2SAT 95
[2018-01-11] MEDS: MYCOPHENOLATE MOFETIL 250 MG CAP (CELLCEPT) PO SCH ×2 (04:37→16:27)
[2018-01-11] MEDS: MULTIVITAMIN TAB PO SCH (04:37)
[2018-01-11] MEDS: SODIUM BICARBONATE 650 MG TAB PO SCH ×3 (04:38→20:23)
[2018-01-11] MEDS: PANTOprazole SOD 40 MG TAB PO SCH ×2 (04:38→16:28)
[2018-01-11] MEDS: TACROLIMUS 1 MG CAP PO SCH ×2 (04:38→16:25)
[2018-01-11] MEDS: CHOLECALCIFEROL 1000 INTER.UNIT TAB PO SCH (04:39)
[2018-01-11] MEDS: MoRPHine SULFATE 4 MG/ML 1 ML CARP\\VIAL IV PRN (04:52)
[2018-01-11 07:00] LABS: HEMATOCRIT 39.7 % (42-52); HEMOGLOBIN 12.8 g/dL (14.0-18.0); MEAN CELL VOLUME 84.1 fL (80-100); MEAN CORPUSCULAR HEMOGLOBIN 27.1 pg (25-34); MEAN CORPUSCULAR HGB CONC 32.2 g/dl (32-36); MEAN PLATELET VOLUME 9.5 fL (7.4-10.4); PLATELET COUNT 142 K/uL (130-400); RED CELL DISTRIBUTION WIDTH CV 15.1 % (11.5-14.5); RED CELL DISTRIBUTION WIDTH SD 46.7 fL (36.4-46.3); WHITE BLOOD COUNT 3.93 K/uL (4.8-10.8)
[2018-01-11 07:29] LABS: CALCIUM 8.4 mg/dl (8.5-10.1); CREATININE 1.6 mg/dl (0.60-1.40); POTASSIUM 4.1 mmol/L (3.5-5.1)
[2018-01-11 07:50] VITALS: BP 149/83; PULSE 71; TEMP 36.6; O2SAT 97
--- NOTE | 2018-01-11 08:20 | PROGRESS NOTE ---
DATE: 01/11/2018 SUBJECTIVE: This is a 42-year-old gentleman with multiple underlying medical comorbidities including end-stage renal disease, status post transplant, and a history of DVT in the past, on Eliquis, now just admitted for observation for his left calf leg hematoma. He is doing much better this morning. Pain is improved. Anxious to get home. OBJECTIVE: VITAL SIGNS: Temperature 36.6. Vital signs stable. PHYSICAL EXAMINATION: Physical exam of the leg reveals the hematoma to be in the subcutaneous tissues. His compartments are all soft and actually better than they were even yesterday. Swelling seems to be down. He can dorsiflex and plantarflex his foot with minimal pain. He is neurologically intact. LABORATORIES: Hemoglobin 12.8. Hematocrit 39.7. Electrolytes are stable. ASSESSMENT: This is a 42-year-old gentleman, on Eliquis, with a history of blood clots in the past with a left calf hematoma from a trauma. This really is all in the subcutaneous tissues and his muscular compartments are all soft and supple without signs of compartment issues. The hematoma in the subcutaneous tissue seems to be stable and not expanding at all and if anything improved from yesterday and his pain is improved. This is something that should resolve with time. There is no surgical indication. PLAN: At this point, we will keep a compression bandage and to have him iced. I think it is okay for him to be discharged to home. I think it would be best for him to limit real aggressive activities for the next couple of days and just let this calm down. It does not necessarily need orthopedic followup. Any orthopedic questions can be directed to me at [phone].
[2018-01-11] MEDS: VERAPAMIL HCL 120 MG TABCR PO SCH ×2 (08:26→16:26)
[2018-01-11] MEDS: ACETAMINOPHEN 500 MG TAB PO PRN ×2 (08:27→17:00)
[2018-01-11 09:40] VITALS: O2SAT 97
[2018-01-11] MEDS: OXYCODONE/ACETAMINOPHEN 5-325 TAB PO PRN ×2 (10:56→21:33)
--- NOTE | 2018-01-11 12:28 | Progress Note ---
Internal Med Progress Note Date of Service: January 11, 2018. Provider Documentation: SUBJECTIVE: The patient was seen and examined in medical floor He was admitted yesterday following an accident with his normal No significant injury on exclude skeletal survey but noted to have a left calf hematoma Has been feeling a lot better this morning and wants to go home OBJECTIVE: Vital Signs-as noted below Exam: General-no distress at rest except some pain in the left calf Eyes-normal ENT-normal Neck-supple Lungs-clear to auscultate bilaterally Heart-regular, no murmur Abdomen-benign Extremities-left leg is swollen with swelling of the left calf and adjoining bruising Neuro-alert, awake, oriented 3 Lab data as noted below. ASSESSMENT & PLAN: Patient is a 42-year-old male with a PMH of membranous glomerulonephritis (s/p right kidney transplant in 2016), HTN, HLD, generalized seizure disorder and other medical problems listed below who presents after an accident with his riding lawnmower earlier today. Left leg hematoma, R elbow edema 2/2 trauma: -Riding lawnmower rolled over patient's left leg following fall -Head, cervical spine, chest, abd/pelvis CT without acute abnormalities -L tibia/fibula, hips/pelvis XR without acute fracture -R elbow with soft tissue swelling -No LLE DVT -Evaluated by ortho -Non-weight bearing on left leg -Ice, pain control -Will see tomorrow -Plan to hold eliquis, baby aspirin, fish oil -Hb remains stable -pain is controlled -swelling in a little better -bruising is increasing -repeat Hb this evening ,if stable will let him go home ;Rest at home for the next 2-3 days H/O DVT, PE: ON ELIQUIS -LLE ultrasound negative for DVT now -Eliquis held in setting of large hematoma, trauma -Plan to restart tomorrow Membranous glomerulonephritis: -S/p right kidney transplant in 2016 at [facility] -Close to baseline Cr of 1.7 (currently 1.8) -Gentle IVF resuscitation. Encouraged oral hydration -Cont Prograf, Cellcept, prednisone, sodium bicarb, vitamins -Avoid nephrotoxins when able -Monitor PRP-remainsstable HTN: -Cont verapamil -BP is controlled HLD: -Cont Zetia Generalized seizure disorder: -Cont Lamotrigine -no episode DVT Ppx: Teds for now. Eliquis held Code status: FULL PCP: Dr. Greenwood ([place]) Dispo: likely discharge this evening Vital Signs: Date Time Temp Pulse Resp B/P (MAP) Pulse Ox O2 Delivery O2 Flow Rate FiO2 01/11/18 09:40 97 Room Air 01/11/18 08:00 Room Air 01/11/18 07:50 36.6 71 18 149/83 (105) 97 Room Air 01/10/18 23:45 Room Air 01/10/18 23:35 36.5 83 18 125/72 (89) 95 Room Air 01/10/18 18:30 36.6 77 16 157/94 (115) 91 Room Air 01/10/18 18:16 78 18 165/99 96 01/10/18 18:10 78 18 165/99 96 Room Air 01/10/18 17:35 96 Room Air 01/10/18 17:11 76 18 171/99 96 Room Air 01/10/18 15:08 81 16 155/92 95 Room Air 01/10/18 13:40 89 18 155/88 95 Room Air 01/10/18 12:44 88 18 167/101 94 Room Air Lab Results: Results Past 24 Hours Test 01/10/18 13:00 01/10/18 19:34 01/11/18 06:32 Range/Units Urine Color YELLOW Urine Appearance CLEAR CLEAR Urine pH 6.5 4.5-7.5 Urine Specific [place] 1.013 1.000-1.030 Urine Protein NEG NEG Urine Glucose (UA) NEG NEG Urine Ketones NEG NEG Urine Occult Blood NEG NEG Urine Nitrite NEG NEG Urine Bilirubin NEG NEG Urine Urobilinogen NEG NEG Urine Leukocyte Esterase NEG NEG White Blood Count 5.78 3.93 4.8-10.8 K/uL Red Blood Count 4.66 4.72 4.7-6.1 M/uL Hemoglobin 12.7 12.8 14.0-18.0 g/dL Hematocrit 38.7 39.7 42-52 % Mean Corpuscular Volume 83.0 84.1 80-100 fL Mean Corpuscular Hemoglobin 27.3 27.1 25-34 pg Mean Corpuscular Hemoglobin Concent 32.8 32.2 32-36 g/dl RDW Standard Deviation 45.7 46.7 36.4-46.3 fL RDW Coefficient of Variation 15.1 15.1 11.5-14.5 % Platelet Count 161 142 130-400 K/uL Mean Platelet Volume 9.5 9.5 7.4-10.4 fL Sodium Level 134 139 136-145 mmol/L Potassium Level 3.8 4.1 3.5-5.1 mmol/L Chloride Level 101 107 98-107 mmol/L Carbon Dioxide Level 25 27 21-32 mmol/L Anion Gap 7.0 5.0 3-11 mmol/L Blood Urea Nitrogen 22 19 7-18 mg/dl Creatinine 1.65 1.60 0.60-1.40 mg/dl Est Creatinine Clear Calc Drug Dose 76.2 78.6 ml/min Estimated GFR () 58.5 60.7 Estimated GFR (Non- 50.4 52.4 BUN/Creatinine Ratio 13.5 11.6 10-20 Random Glucose 88 96 70-99 mg/dl Calcium Level 8.4 8.4 8.5-10.1 mg/dl
[2018-01-11 12:41] VITALS: BP 151/82; PULSE 77; TEMP 36.8; O2SAT 97
[2018-01-11 15:36] VITALS: BP 138/87; PULSE 73; TEMP 36.6; O2SAT 95
[2018-01-11] MEDS: TAMSULOSIN HCL 0.4 MG CAP PO SCH (16:27)
[2018-01-11 17:25] LABS: HEMATOCRIT 38.3 % (42-52); HEMOGLOBIN 12.2 g/dL (14.0-18.0); MEAN CELL VOLUME 84.5 fL (80-100); MEAN CORPUSCULAR HEMOGLOBIN 26.9 pg (25-34); MEAN CORPUSCULAR HGB CONC 31.9 g/dl (32-36); PLATELET COUNT 138 K/uL (130-400); RED CELL DISTRIBUTION WIDTH SD 46.1 fL (36.4-46.3); WHITE BLOOD COUNT 5.16 K/uL (4.8-10.8)
[2018-01-11] MEDS: CYANOCOBALAMIN 100 MCG TAB (VIT B-12) PO SCH (20:23)
[2018-01-11] MEDS: PYRIDOXINE HCL 50 MG TAB PO SCH (20:24)
[2018-01-11] MEDS: EZETIMIBE 10MG TAB PO SCH (20:24)
[2018-01-11] MEDS: CALCIUM 600MG + VIT D 400 IU TAB PO SCH (20:24)
[2018-01-11] MEDS: SERTRALINE HCL 100 MG TAB PO SCH (20:25)
[2018-01-11] MEDS: FoLIC ACID TAB 400 MCG TAB PO SCH (20:25)
[2018-01-11] MEDS: CLONAZEPAM 1 MG TAB PO SCH (20:27)
[2018-01-11 22:54] VITALS: BP 128/72; PULSE 72; TEMP 36.5; O2SAT 95
[2018-01-12 00:52] VITALS: BP 103/54; PULSE 58; O2SAT 97
[2018-01-12] MEDS: MULTIVITAMIN TAB PO SCH (04:25)
[2018-01-12] MEDS: PANTOprazole SOD 40 MG TAB PO SCH (04:25)
[2018-01-12] MEDS: TACROLIMUS 1 MG CAP PO SCH (04:25)
[2018-01-12] MEDS: CHOLECALCIFEROL 1000 INTER.UNIT TAB PO SCH (04:25)
[2018-01-12] MEDS: MYCOPHENOLATE MOFETIL 250 MG CAP (CELLCEPT) PO SCH (04:26)
[2018-01-12] MEDS: SODIUM BICARBONATE 650 MG TAB PO SCH (04:26)
[2018-01-12 06:52] VITALS: BP 134/78; PULSE 82; TEMP 36.7; O2SAT 94
[2018-01-12 07:37] LABS: HEMATOCRIT 39.6 % (42-52); HEMOGLOBIN 12.9 g/dL (14.0-18.0); MEAN CELL VOLUME 84.4 fL (80-100); MEAN CORPUSCULAR HEMOGLOBIN 27.5 pg (25-34); MEAN CORPUSCULAR HGB CONC 32.6 g/dl (32-36); MEAN PLATELET VOLUME 10.2 fL (7.4-10.4); PLATELET COUNT 160 K/uL (130-400); RED CELL DISTRIBUTION WIDTH SD 46.3 fL (36.4-46.3); WHITE BLOOD COUNT 4.87 K/uL (4.8-10.8)
[2018-01-12 08:10] LABS: CALCIUM 8.7 mg/dl (8.5-10.1); CREATININE 1.71 mg/dl (0.60-1.40); POTASSIUM 4.4 mmol/L (3.5-5.1)
[2018-01-12] MEDS: VERAPAMIL HCL 120 MG TABCR PO SCH (09:07)
[2018-01-12] MEDS: ACETAMINOPHEN 500 MG TAB PO PRN (09:09)
[2018-01-12 10:30] VITALS: BP 134/78; PULSE 82; TEMP 36.7; O2SAT 94
--- NOTE | 2018-01-12 10:52 | PROGRESS NOTE ---
DATE: 01/12/2018 SUBJECTIVE: A 42-year-old gentleman admitted with a left calf hematoma. He is doing well. Minimal pain this morning. Much better. We thought he was going to be discharged yesterday. I am not sure why he was kept overnight, but he is doing well. No complaints. OBJECTIVE: VITAL SIGNS: Temperature is 36.7. Vital signs stable. GENERAL: Physical examination today shows a 42-year-old male. He is lying in bed, looks pretty comfortable. EXTREMITIES: Examination of the left calf reveals a small hematoma in subcutaneous tissues. There is no induration or signs of infection. There is diffuse bruising, but his compartments are completely soft. He can dorsiflex and plantarflex his foot appropriately. He has got full knee motion. He is neurologically intact. LABORATORY DATA: Hemoglobin 12.9. Hematocrit 39.6. ASSESSMENT: This is a 42-year-old male with underlying medical comorbidities including renal transplant with a left calf hematoma, on Eliquis. He is doing well. There is no need for him to be in the hospital. I would not recommend stopping the Eliquis because he is at risk for DVT with his decreased mobility. His hematoma is stable. PLAN: I would recommend just compression bandage, ice, he can weightbear as tolerated and he does not need orthopedic followup. Any orthopedic questions can be directed at [phone].
--- NOTE | 2018-01-12 11:09 | Progress Note ---
Internal Med Progress Note Date of Service: January 12, 2018. Provider Documentation: SUBJECTIVE: The patient was seen and examined in medical floor He was admitted yesterday following an accident with his normal No significant injury on exclude skeletal survey but noted to have a left calf hematoma Has been feeling a lot better this morning and wants to go home 5/4 Clinically a lot better Bruising is slightly worse Hb remains stable OBJECTIVE: Vital Signs-as noted below Exam: General-no distress at rest except some pain in the left calf Eyes-normal ENT-normal Neck-supple Lungs-clear to auscultate bilaterally Heart-regular, no murmur Abdomen-benign Extremities-left leg is swollen with swelling of the left calf and adjoining bruising Left calf swelling is better -bruising is worse as expected Minimal tenderness Neuro-alert, awake, oriented 3 Lab data as noted below. ASSESSMENT & PLAN: Patient is a 42-year-old male with a PMH of membranous glomerulonephritis (s/p right kidney transplant in 2015), HTN, HLD, generalized seizure disorder and other medical problems listed below who presents after an accident with his riding lawnmower earlier today. Left leg hematoma, R elbow edema 2/ trauma: -Riding lawnmower rolled over patient's left leg following fall -Head, cervical spine, chest, abd/pelvis CT without acute abnormalities -L tibia/fibula, hips/pelvis XR without acute fracture -R elbow with soft tissue swelling -No LLE DVT -Evaluated by ortho -Non-weight bearing on left leg -Ice, pain control -Will see tomorrow -Plan to hold eliquis, baby aspirin, fish oil -Hb remains stable -pain is controlled -swelling in a little better -bruising is increasing -repeat Hb this evening ,if stable will let him go home ;Rest at home for the next 2-3 days -Hb remains stable and symptomatically better -appreciate Ortho input and recommendation ;;compression bandage, ice, he can weight bear as tolerated H/O DVT, PE: ON ELIQUIS -LLE ultrasound negative for DVT now -Eliquis held in setting of large hematoma, trauma -restart Eliquis Membranous glomerulonephritis: -S/p right kidney transplant in 2015 at [facility] -Close to baseline Cr of 1.7 (currently 1.8) -Gentle IVF resuscitation. Encouraged oral hydration -Cont Prograf, Cellcept, prednisone, sodium bicarb, vitamins -Avoid nephrotoxins when able -Monitor PRP-remains stable HTN: -Cont verapamil -BP is controlled HLD: -Cont Zetia Generalized seizure disorder: -Cont Lamotrigine -no episode DVT Ppx: Teds for now. Eliquis held Code status: FULL PCP: Dr. Greenwood ([place]) Dispo: Discharge today Vital Signs: Date Time Temp Pulse Resp B/P (MAP) Pulse Ox O2 Delivery O2 Flow Rate FiO2 01/12/18 10:30 36.7 82 18 94 Room Air 01/12/18 07:30 Room Air 01/12/18 06:52 36.7 82 18 134/78 (96) 94 Room Air 01/11/18 23:24 Room Air 01/11/18 22:54 36.5 72 16 128/72 (90) 95 Room Air 01/11/18 20:00 Room Air 01/11/18 16:05 Room Air 01/11/18 15:36 36.6 73 18 138/87 (104) 95 Room Air 01/11/18 12:41 36.8 77 18 151/82 (105) 97 Room Air Lab Results: Results Past 24 Hours Test 01/11/18 17:13 01/12/18 07:06 Range/Units White Blood Count 5.16 4.87 4.8-10.8 K/uL Red Blood Count 4.53 4.69 4.7-6.1 M/uL Hemoglobin 12.2 12.9 14.0-18.0 g/dL Hematocrit 38.3 39.6 42-52 % Mean Corpuscular Volume 84.5 84.4 80-100 fL Mean Corpuscular Hemoglobin 26.9 27.5 25-34 pg Mean Corpuscular Hemoglobin Concent 31.9 32.6 32-36 g/dl RDW Standard Deviation 46.1 46.3 36.4-46.3 fL RDW Coefficient of Variation 15.0 15.0 11.5-14.5 % Platelet Count 138 160 130-400 K/uL Mean Platelet Volume 9.0 10.2 7.4-10.4 fL Sodium Level 140 136-145 mmol/L Potassium Level 4.4 3.5-5.1 mmol/L Chloride Level 107 98-107 mmol/L Carbon Dioxide Level 28 21-32 mmol/L Anion Gap 4.0 3-11 mmol/L Blood Urea Nitrogen 23 7-18 mg/dl Creatinine 1.71 0.60-1.40 mg/dl Est Creatinine Clear Calc Drug Dose 73.5 ml/min Estimated GFR () 56.0 Estimated GFR (Non- 48.3 BUN/Creatinine Ratio 13.2 10-20 Random Glucose 91 70-99 mg/dl Calcium Level 8.7 8.5-10.1 mg/dl
[2018-01-12] MEDS ORDERED: OXYC-57 PO (11:12)
--- NOTE | 2018-01-12 11:14 | Discharge Instructions ---
Discharge Instructions Date of Service January 12, 2018. Admission Reason for Admission: Accident Caused By Powered Occupational Health And Safety Manager, Traumatic Discharge Discharge Diagnosis / Problem: Accidental injury from Occupational Health And Safety Manager,Left leg Hematoma Discharge Goals Goal(s): Prevent Disease Progression Activity Recommendations Activity Limitations: resume your previous activity (Take it easy for next few days) . Instructions / Follow-Up Instructions / Follow-Up Please make an appointment with your PCP in 1 week Current Hospital Diet Patient's current hospital diet: Renal Diet, AHA Diet (Heart Healthy) Discharge Diet Recommended Diet: AHA Diet (Heart Healthy) Pending Studies Studies pending at discharge: no Medical Emergencies . Who to Call and When: Medical Emergencies: If at any time you feel your situation is an emergency, please call 911 immediately. . Non-Emergent Contact Non-Emergency issues call your: Primary Care Provider . Past History Medical & Surgical History: (1) Leg hematoma (2) Membranous glomerulonephritis with nephrosis (3) HTN (hypertension) (4) Generalized seizure disorder (5) GERD (gastroesophageal reflux disease) (6) Traumatic hematoma of left lower leg (7) H/O knee surgery . "Provider Documentation" section prepared by Fredrick Pratt. .
--- NOTE | 2018-01-12 17:06 | Discharge Summary ---
Discharge Summary Date of Service January 12, 2018. Discharge Summary Admission Date: January 10, 2018 at 16:09 Discharge Date: January 12, 2018 Discharge Disposition: Home Principal Diagnosis: Accidental injury from Electrical Tech/Project Manager,Left leg Hematoma Secondary Diagnoses/Problems: Please see H&P and Hospital Progress note Consultations: Ortho Medication Reconciliation New Medications: Oxycodone/Acetaminophen 5MG/325MG (Percocet 5MG/325MG) Tab 1 TAB PO Q6H PRN for Pain for 3 Days, #12 TAB PAIN Continued Medications: Apixaban (Eliquis) 2.5 Mg Tab 2.5 MG PO UD TAKES BID @0430 AND 1630 Aspirin (Aspirin Ec) 81 Mg Tab 81 MG PO 3XWK TAKES MON, WED, AND FRI AT 0430. Calcium Carbonate-Cholecalcife (Caltrate 600+D) 1 Tab Tab 1 TAB PO 2100 Cholecalciferol (D3-1000) 1,000 Unit Tab 1000 UNITS PO 0430 Clonazepam (Klonopin) 1 Mg Tab 1 MG PO 2100 Cyanocobalamin (Vitamin B-12) 100 Mcg Tab 100 MCG PO 2100 Docusate Sodium (Docusate Sodium) 100 Mg Cap 100 MG PO UD TAKES BID 0430 AND 1630 Ezetimibe (Zetia) 10 Mg Tab 10 MG PO 2100 Folic Acid (Folic Acid) 400 Mcg Tab 800 MCG PO 2100 Lamotrigine (Lamotrigine Er) 300 Mg Tab 600 MG PO 2100 Multivitamin (Multivitamin) Tab 1 TAB PO 0430 Mycophenolate Mofetil (Cellcept) 250 Mg Cap 3 CAP PO UD TAKES BID AT 0430 AND 1630 [place]-3 Fatty Acids (Fish Oil) 1,000 Mg Cap 1000 MG PO 2100 Omeprazole (Prilosec) 40 Mg Cap 40 MG PO UD TAKES BID AT 0430 AND 1630 Prednisone (Prednisone) 5 Mg Tab 5 MG PO QAM Pyridoxine HCl (Vitamin B6) 50 Mg Tab 40 MG PO 2100 Sertraline Hcl (Zoloft) 100 Mg Tab 100 MG PO 2100 Sodium Bicarbonate (Sodium Bicarbonate) 650 Mg Tab 1950 MG PO UD PATIENT TAKES TID @0430, 1630, 2100 Tacrolimus (Prograf) 1 Mg Cap 2 MG PO UD Takes BID at 4:30 AM and 4:30 PM. Tamsulosin Hcl (Flomax) 0.4 Mg Cap 0.4 MG PO 1630 Verapamil Sust Rel (Calan Sr Ext Rel) 120 Mg Tabcr 120 MG PO UD HOLD IF SBP <110. Give medication at 0900 and 1630 Admission Information HPI (per Admitting provider): Patient is a 42-year-old male with a PMH of membranous glomerulonephritis (s/p right kidney transplant in 2016), HTN, HLD, generalized seizure disorder and other medical problems listed below who presents after an accident with his riding lawnmower earlier today. Patient states that he hit on even ground and fell off of lawnmower and machine rolled on top of left lower leg. Also injured R elbow. Denies LOC. Patient was able to lawnmower off and drive himself to the ED for further evaluation. Continues to have 7 out of 10 pain and left lower leg despite receiving morphine in the ED. Denies any pain, fever, chills, lightheadedness, headache, visual changes, CP, SOB, abdominal pain, nausea, vomiting, bowel or bladder changes. PCP is Dr. Greenwood in [place]. Also follows closely with transplant team in [place] at [facility]. Patient is on Eliquis for history of bilateral PE in 2008 and DVT in 2010. Is also on immunosuppressants Prograf and Cellept for kidney transplant. Baseline Cr post-transplant is ~1.7. Past Medical/Surgical History Medical Problems: (1) Anemia of chronic disease Status: Chronic (2) Dyslipidemia Status: Chronic (3) Generalized seizure disorder Status: Chronic (4) GERD (gastroesophageal reflux disease) Status: Chronic (5) HTN (hypertension) Status: Chronic (6) Membranous glomerulonephritis with nephrosis Permanent Comment: s/p R kidney transplant in 2016 at [facility] Status: Chronic Surgical Problems: (1) H/O knee surgery Status: Resolved Family History Cancer Diabetes mellitus Gallbladder disease Heart disease Hypertension Kidney disease Kidney stones Lung disease Seizures Social History Smoking Status: Never Smoker Alcohol Use: socially (1 beer with dinner 5x/week ) Drug Use: none Marital Status: Housing status: lives with family Occupational Status: employed Allergies Coded Allergies: Celecoxib (Verified Allergy, Severe, HIVES, 12/13/17) Shellfish (Unverified Allergy, Severe, THROAT SWELLS SHUT/HIVES, 01/10/18) Amitriptyline (Verified Allergy, Intermediate, "CAN'T URINATE", 12/13/17) Tramadol (Verified Adverse Reaction, Severe, Seizures, 01/10/18) Home Medications Scheduled Apixaban (Eliquis), 2.5 MG PO UD Aspirin (Aspirin Ec), 81 MG PO 3XWK Calcium Carbonate-Cholecalcife (Caltrate 600+D), 1 TAB PO 2100 Cholecalciferol (D3-1000), 1,000 UNITS PO 0430 Clonazepam (Klonopin), 1 MG PO 2100 Cyanocobalamin (Vitamin B-12), 100 MCG PO 2100 Docusate Sodium (Docusate Sodium), 100 MG PO UD Ezetimibe (Zetia), 10 MG PO 2100 Folic Acid (Folic Acid), 800 MCG PO 2100 Lamotrigine (Lamotrigine Er), 600 MG PO 2100 Multivitamin (Multivitamin), 1 TAB PO 0430 Mycophenolate Mofetil (Cellcept), 3 CAP PO UD [place]-3 Fatty Acids (Fish Oil), 1,000 MG PO 2100 Omeprazole (Prilosec), 40 MG PO UD Prednisone (Prednisone), 5 MG PO QAM Pyridoxine HCl (Vitamin B6), 40 MG PO 2100 Sertraline Hcl (Zoloft), 100 MG PO 2100 Sodium Bicarbonate (Sodium Bicarbonate), 1,950 MG PO UD Tacrolimus (Prograf), 2 MG PO UD Tamsulosin Hcl (Flomax), 0.4 MG PO 1630 Verapamil Sust Rel (Calan Sr Ext Rel), 120 MG PO UD Review of Systems Ten systems reviewed and negative except as noted in the HPI. Physical Exam H&P v2 Physical Exam Vital Signs Date Time Temp Pulse Resp B/P (MAP) Pulse Ox O2 Delivery O2 Flow Rate FiO2 01/10/18 15:08 81 16 155/92 95 Room Air 01/10/18 13:40 89 18 155/88 95 Room Air 01/10/18 12:44 88 18 167/101 94 Room Air 01/10/18 11:15 103 18 173/105 95 Room Air 01/10/18 10:41 95 18 164/114 94 Room Air 01/10/18 09:52 36.6 109 22 158/124 96 Room Air General Appearance: WD/WN, + mild distress Head: normocephalic, atraumatic Eyes: normal inspection, PERRL, sclerae normal ENT: normal ENT inspection, hearing grossly normal, pharynx normal Neck: supple, thyroid normal, trachea midline Respiratory/Chest: chest non-tender, lungs clear, normal breath sounds, no respiratory distress, no accessory muscle use Cardiovascular: regular rate, rhythm, no murmur, normal peripheral pulses Abdomen/GI: non tender, soft, no organomegaly Extremities/Musculoskelatal: normal capillary refill, no pedal edema, + pertinent finding (Large hematoma on medial aspect of left lower leg. R elbow with erythema and edema. Normal ROM. ) Neurologic/Psych: no motor/sensory deficits, alert, normal mood/affect, oriented x 3 Skin: normal color Diagnostics H&P v2 Diagnostics Laboratory Results Results Past 24 Hours Test 01/10/18 10:11 01/10/18 10:15 01/10/18 13:00 Range/Units White Blood Count 7.06 4.8-10.8 K/uL Red Blood Count 4.85 4.7-6.1 M/uL Hemoglobin 13.1 14.0-18.0 g/dL Hematocrit 40.5 42-52 % Mean Corpuscular Volume 83.5 80-100 fL Mean Corpuscular Hemoglobin 27.0 25-34 pg Mean Corpuscular Hemoglobin Concent 32.3 32-36 g/dl Platelet Count 173 130-400 K/uL Mean Platelet Volume 9.3 7.4-10.4 fL Neutrophils (%) (Auto) 76.9 % Lymphocytes (%) (Auto) 12.3 % Monocytes (%) (Auto) 9.1 % Eosinophils (%) (Auto) 1.1 % Basophils (%) (Auto) 0.3 % Neutrophils # (Auto) 5.43 1.4-6.5 K/uL Lymphocytes # (Auto) 0.87 1.2-3.4 K/uL Monocytes # (Auto) 0.64 0.11-0.59 K/uL Eosinophils # (Auto) 0.08 0-0.5 K/uL Basophils # (Auto) 0.02 0-0.2 K/uL RDW Standard Deviation 46.9 36.4-46.3 fL RDW Coefficient of Variation 15.5 11.5-14.5 % Immature Granulocyte % (Auto) 0.3 % Immature Granulocyte # (Auto) 0.02 0.00-0.02 K/uL Prothrombin Time 11.8 9.0-12.0 SECONDS Prothromb Time International Ratio 1.1 0.9-1.1 Activated Partial Thromboplast Time 26.8 21.0-31.0 SECONDS Partial Thromboplastin Ratio 1.0 Sodium Level 134 136-145 mmol/L Potassium Level 4.1 3.5-5.1 mmol/L Chloride Level 103 98-107 mmol/L Carbon Dioxide Level 24 21-32 mmol/L Anion Gap 7.0 15.0 16-25 mmol/L Blood Urea Nitrogen 25 7-18 mg/dl Creatinine 1.80 0.60-1.40 mg/dl Est Creatinine Clear Calc Drug Dose 69.8 ml/min Estimated GFR () 52.6 Estimated GFR (Non- 45.4 BUN/Creatinine Ratio 14.0 10-20 Random Glucose 111 70-99 mg/dl Calcium Level 8.9 8.5-10.1 mg/dl Total Bilirubin 0.5 0.2-1 mg/dl Aspartate Amino Transf (AST/SGOT) 17 15-37 U/L Alanine Aminotransferase (ALT/SGPT) 30 12-78 U/L Alkaline Phosphatase 103 45-117 U/L Total Protein 7.3 6.4-8.2 gm/dl Albumin 3.9 3.4-5.0 gm/dl Globulin 3.4 2.5-4.0 gm/dl Albumin/Globulin Ratio 1.1 0.9-2 Bedside Hemoglobin 14.3 14.0-18.0 g/dl Bedside Hematocrit 42 42-52 % Bedside Sodium 136 135-144 mEq/L Bedside Potassium 4.2 3.3-5.0 mEq/L Bedside Chloride 102 101-112 mEq/L Bedside Total CO2 24 24-31 mEq/l Bedside Blood Urea Nitrogen 24 7-18 mg/dl Bedside Creatinine 1.8 0.6-1.3 mg/dl Bedside Glucose (other) 114 70-99 mg/dl Bedside Ionized Calcium (Som) 1.18 1.12-1.32 mmol/l Urine Color YELLOW Urine Appearance CLEAR CLEAR Urine pH 6.5 4.5-7.5 Urine Specific Section 1.013 1.000-1.030 Urine Protein NEG NEG Urine Glucose (UA) NEG NEG Urine Ketones NEG NEG Urine Occult Blood NEG NEG Urine Nitrite NEG NEG Urine Bilirubin NEG NEG Urine Urobilinogen NEG NEG Urine Leukocyte Esterase NEG NEG Diagnostic Radiology CT OF THE HEAD WITHOUT CONTRAST: IMPRESSION: 1. No acute intracranial findings. 2. No calvarial fracture. CERVICAL SPINE CT W/O: IMPRESSION: No fractures within the cervical spine. Mild degenerative change. No change from the prior study. (CHEST) THORAX CT WITHOUT: IMPRESSION: 1. No acute intrathoracic injury. 2. Hepatic steatosis. CT OF THE ABDOMEN AND PELVIS WITHOUT CONTRAST: IMPRESSION: 1. No evidence of traumatic injury to the solid abdominal viscera although sensitivity diminished on this unenhanced exam. 2. No hemoperitoneum or pneumoperitoneum. 3. Unremarkable unenhanced appearance of the right lower quadrant renal allograft. L TIBIA/FIBULA 2 VIEWS ROUTINE: IMPRESSION: Negative study. R ELBOW MIN 3 VIEWS ROUTINE: IMPRESSION: 1. No acute fracture or joint effusion of the right elbow. 2. Soft tissue swelling over the olecranon which has diminished compared to exam of December 13, 2017. R PELVIS/UNILATERAL HIP 2-3VIEWS: IMPRESSION: 1. No acute fracture within the pelvis or hips. 2. Moderate osteoarthritis of the right hip. L KNEE 3 VIEWS: IMPRESSION: 1. No acute fracture or joint effusion of the left knee. 2. Apparent lower leg soft tissue swelling, partially imaged on this exam. L VENOUS DOPP LOWER EXT UNILAT: IMPRESSION: Normal venous Doppler Impression H&P v2 Impression Assessment and Plan Patient is a 42-year-old male with a PMH of membranous glomerulonephritis (s/p right kidney transplant in 2016), HTN, HLD, generalized seizure disorder and other medical problems listed below who presents after an accident with his riding lawnmower earlier today. Left leg hematoma, R elbow edema 2/2 trauma: -Riding lawnmower rolled over patient's left leg following fall -Head, cervical spine, chest, abd/pelvis CT without acute abnormalities -L tibia/fibula, hips/pelvis XR without acute fracture -R elbow with soft tissue swelling -No LLE DVT -Evaluated by ortho -Non-weight bearing on left leg -Ice, pain control -Will see tomorrow -Plan to hold eliquis, baby aspirin, fish oil Membranous glomerulonephritis: -S/p right kidney transplant in 2016 at [facility] -Close to baseline Cr of 1.7 (currently 1.8) -Gentle IVF resuscitation. Encouraged oral hydration -Cont Prograf, Cellcept, prednisone, sodium bicarb, vitamins -Avoid nephrotoxins when able -Monitor BMP H/o DVT, PE: -LLE ultrasound negative for DVT -Eliquis held in setting of large hematoma, trauma -Plan to restart when appropriate HTN: -Cont verapamil HLD: -Cont Zetia Generalized seizure disorder: -Cont Lamotrigine DVT Ppx: Teds for now. Eliquis held Code status: FULL PCP: Dr. Greenwood ([place]) Dispo: Med/surg observation. Plan to return home once medically stable. Patient seen in collaboration with Dr. Byrne. Please see addendum. 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 Multiple bruise on bilateral arms and torso lower extremity, large hematoma on the left lower leg In the ER multiple imaging studies shows no evidence of fracture or dislocation Hemoglobin stable Patient will be admitted to medical surgical-for pain control Monitor for H&H, leg hematoma CHRONIC KIDNEY DISEASE STATUS POST RENAL TRANSPLANT Renal function approximate baseline Continue outpatient immunosuppressant IV fluids Follow PRP Mari Byrne MD Resuscitation Status VTE Prophylaxis Will order VTE Prophylaxis: Yes Physical Exam (per Admitting): General Appearance: WD/WN, + mild distress Head: normocephalic, atraumatic Eyes: normal inspection, PERRL, sclerae normal ENT: normal ENT inspection, hearing grossly normal, pharynx normal Neck: supple, thyroid normal, trachea midline Respiratory/Chest: chest non-tender, lungs clear, normal breath sounds, no respiratory distress, no accessory muscle use Cardiovascular: regular rate, rhythm, no murmur, normal peripheral pulses Abdomen/GI: non tender, soft, no organomegaly Extremities/Musculoskelatal: normal capillary refill, no pedal edema, + pertinent finding (Large hematoma on medial aspect of left lower leg. R elbow with erythema and edema. Normal ROM. ) Neurologic/Psych: no motor/sensory deficits, alert, normal mood/affect, oriented x 3 Skin: normal color Hospital Course Patient is a 42-year-old male with a PMH of membranous glomerulonephritis (s/p right kidney transplant in 2016), HTN, HLD, generalized seizure disorder and other medical problems listed below who presents after an accident with his riding lawnmower earlier today. Left leg hematoma, R elbow edema 2/2 trauma: -Riding lawnmower rolled over patient's left leg following fall -Head, cervical spine, chest, abd/pelvis CT without acute abnormalities -L tibia/fibula, hips/pelvis XR without acute fracture -R elbow with soft tissue swelling -No LLE DVT -Evaluated by ortho -Non-weight bearing on left leg -Ice, pain control -Will see tomorrow -Plan to hold eliquis, baby aspirin, fish oil -Hb remains stable -pain is controlled -swelling in a little better -bruising is increasing -repeat Hb this evening ,if stable will let him go home ;Rest at home for the next 2-3 days -Hb remains stable and symptomatically better -appreciate Ortho input and recommendation ;;compression bandage, ice, he can weight bear as tolerated H/O DVT, PE: ON ELIQUIS -LLE ultrasound negative for DVT now -Eliquis held in setting of large hematoma, trauma -restart Eliquis Membranous glomerulonephritis: -S/p right kidney transplant in 2015 at [facility] -Close to baseline Cr of 1.7 (currently 1.8) -Gentle IVF resuscitation. Encouraged oral hydration -Cont Prograf, Cellcept, prednisone, sodium bicarb, vitamins -Avoid nephrotoxins when able -Monitor PRP-remains stable HTN: -Cont verapamil -BP is controlled HLD: -Cont Zetia Generalized seizure disorder: -Cont Lamotrigine -no episode DVT Ppx: Teds for now. Eliquis held Code status: FULL PCP: Dr. Greenwood ([place]) Dispo: Discharge today Total time spent on discharge = 35 minutes This includes examination of the patient, discharge planning, medication reconciliation, and communication with other providers. Discharge Instructions Date of Service January 12, 2018. Admission Reason for Admission: Accident Caused By Powered Electrical Tech/Project Manager, Traumatic Discharge Discharge Diagnosis / Problem: Accidental injury from Electrical Tech/Project Manager,Left leg Hematoma Discharge Goals Goal(s): Prevent Disease Progression Activity Recommendations Activity Limitations: resume your previous activity (Take it easy for next few days) . Instructions / Follow-Up Instructions / Follow-Up Please make an appointment with your PCP in 1 week Current Hospital Diet Patient's current hospital diet: Renal Diet, AHA Diet (Heart Healthy) Discharge Diet Recommended Diet: AHA Diet (Heart Healthy) Pending Studies Studies pending at discharge: no Medical Emergencies . Who to Call and When: Medical Emergencies: If at any time you feel your situation is an emergency, please call 911 immediately. . Non-Emergent Contact Non-Emergency issues call your: Primary Care Provider . Past History Medical & Surgical History: (1) Leg hematoma (2) Membranous glomerulonephritis with nephrosis (3) HTN (hypertension) (4) Generalized seizure disorder (5) GERD (gastroesophageal reflux disease) (6) Traumatic hematoma of left lower leg (7) H/O knee surgery . "Provider Documentation" section prepared by Fredrick Pratt. . <Electronically signed by Fredrick Pratt M.D.> Signed: 01/12/18 1237 Signed: Additional Copies To Rk Greenwood M.D.
== END 2018-01-12 11:46 | disposition home or self-care (01) ==
LOC: C.EDB 09:41 → C.MSW 16:09 → ENRESERV 16:43
PROVIDERS: ADMIT Hospitalist; ATTEND Internal Medicine
DX: S80.12XA Contusion of left lower leg, initial encounter (principal); E78.5 Hyperlipidemia, unspecified; K21.9 Gastro-esophageal reflux disease without esophagitis; I10 Essential (primary) hypertension; G40.909 Epilepsy, unspecified, not intractable, without status epilepticus; Z94.0 Kidney transplant status; Z83.3 Family history of diabetes mellitus; Z82.49 Family history of ischemic heart disease and other diseases of the circulatory system; Z84.1 Family history of disorders of kidney and ureter; Z82.0 Family history of epilepsy and other diseases of the nervous system; Z79.82 Long term (current) use of aspirin; Z86.718 Personal history of other venous thrombosis and embolism; Z79.01 Long term (current) use of anticoagulants; Z86.711 Personal history of pulmonary embolism; W28.XXXA Contact with powered lawn mower, initial encounter; Z88.1 Allergy status to other antibiotic agents; Z88.5 Allergy status to narcotic agent; Z79.899 Other long term (current) drug therapy

== ENCOUNTER 2023-06-21 05:17 | Observation (INO) ==
--- NOTE | 2023-05-08 12:15 | PAT Medication Instructions ---
Medication Instructions Date of Service May 08, 2023 Home Medications Medication Instructions Recorded ondansetron 4 mg disintegrating 4 mg PO Q8H PRN nausea and 02/16/23 tablet vomiting #10 tabs aspirin 81 mg tablet,delayed release (Aspir-) 81 mg PO UD cholecalciferol (vitamin D3) 25 mcg (1,000 unit) capsule (Vitamin D3) 1,000 unit PO QAM multivitamin 1 tab PO QAM mycophenolate mofetil 250 mg capsule (CellCept) 750 mg PO BID omega 4-hxr-cxm-fish oil 1,000 mg (120 mg-180 mg) capsule (Fish Oil) 1,000 mg PO QAM prednisone 5 mg tablet 5 mg PO QAM sertraline 100 mg tablet (Zoloft) 200 mg PO HS sodium bicarbonate 650 mg tablet 1,950 mg PO BID tacrolimus 1 mg capsule, immediate-release (Prograf) 1 mg PO BID tamsulosin 0.4 mg capsule 0.4 mg PO QPM calcium carbonate 500 mg-vitamin D3 5 mcg (200 unit) tablet (Oyster Shell Calcium-Vitamin D3) 1 tab PO QAM folic acid 1 mg tablet 1 mg PO QAM lamotrigine 100 mg tablet (Lamictal) 100 mg PO BID naltrexone microspheres 380 mg intramuscular suspension,extended release (Vivitrol) 380 mg IM Q30D quetiapine 400 mg tablet (Seroquel) 400 mg PO HS PRN verapamil 120 mg tablet 120 mg PO QAM verapamil 120 mg tablet 240 mg PO QPM apixaban 5 mg tablet (Eliquis) 5 mg PO BID atorvastatin 40 mg tablet (Lipitor) 20 mg PO HS buspirone 15 mg tablet 30 mg PO BID divalproex 500 mg tablet,extended release 24 hr (Depakote ER) 500 mg PO BID docusate sodium 50 mg capsule 50 mg PO BID PRN melatonin 10 mg tablet 20 mg PO HS omeprazole 20 mg capsule,delayed release 40 mg PO BID quetiapine 200 mg tablet 300 mg PO HS ondansetron 4 mg disintegrating tablet 4 mg PO Q8H PRN Check if prescriber has stephenie-operative recommendations, otherwise continue as normal quetiapine 200 mg tablet 300 mg PO HS quetiapine 400 mg tablet (Seroquel) 400 mg PO HS PRN(if needed) Continue as directed naltrexone microspheres 380 mg intramuscular suspension,extended release (Vivitrol) 380 mg IM Q30D ondansetron 4 mg disintegrating tablet 4 mg PO Q8H PRN(if needed) aspirin 81 mg tablet,delayed release (Aspir-) 81 mg PO UD (unless directed otherwise by surgeon) ASK your prescriber and surgeon mycophenolate mofetil 250 mg capsule (CellCept) 750 mg PO BID tacrolimus 1 mg capsule, immediate-release (Prograf) 1 mg PO BID apixaban 5 mg tablet (Eliquis) 5 mg PO BID(in order for spinal or epidural anesthesia, Eliquis needs to be stopped 72 hours/3 days before surgery. Please check if okay with doctor that prescribes this to you) STOP taking 48 hours before surgery (or as soon as possible if surgery is within 2 weeks) omega 7-fdc-njv-fish oil 1,000 mg (120 mg-180 mg) capsule (Fish Oil) 1,000 mg PO QAM DO NOT take the morning of surgery cholecalciferol (vitamin D3) 25 mcg (1,000 unit) capsule (Vitamin D3) 1,000 unit PO QAM multivitamin 1 tab PO QAM sodium bicarbonate 650 mg tablet 1,950 mg PO BID calcium carbonate 500 mg-vitamin D3 5 mcg (200 unit) tablet (Oyster Shell Calcium-Vitamin D3) 1 tab PO QAM folic acid 1 mg tablet 1 mg PO QAM docusate sodium 50 mg capsule 50 mg PO BID PRN Take morning of surgery With a small sip of water, OTHERWISE NOTHING TO EAT OR DRINK AFTER MIDNIGHT: prednisone 5 mg tablet 5 mg PO QAM lamotrigine 100 mg tablet (Lamictal) 100 mg PO BID verapamil 120 mg tablet 120 mg PO QAM buspirone 15 mg tablet 30 mg PO BID divalproex 500 mg tablet,extended release 24 hr (Depakote ER) 500 mg PO BID omeprazole 20 mg capsule,delayed release 40 mg PO BID Take evening before surgery sertraline 100 mg tablet (Zoloft) 200 mg PO HS sodium bicarbonate 650 mg tablet 1,950 mg PO BID tamsulosin 0.4 mg capsule 0.4 mg PO QPM lamotrigine 100 mg tablet (Lamictal) 100 mg PO BID verapamil 120 mg tablet 240 mg PO QPM atorvastatin 40 mg tablet (Lipitor) 20 mg PO HS buspirone 15 mg tablet 30 mg PO BID divalproex 500 mg tablet,extended release 24 hr (Depakote ER) 500 mg PO BID docusate sodium 50 mg capsule 50 mg PO BID PRN(if needed) melatonin 10 mg tablet 20 mg PO HS omeprazole 20 mg capsule,delayed release 40 mg PO BID Other Notes If you have any questions please call us at [phone] or [phone] or [phone] or [phone]
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
[2023-06-21] MEDS ORDERED: LR 500ML BOLUS, THEN 15ML/HR IV SCH (06:00)
[2023-06-21] MEDS ORDERED: dexAMETHasone**PF** 10 MG/ML VIAL IV SCH (06:00)
[2023-06-21] MEDS ORDERED: METOCLOPRAMIDE HCL 10 MG TABLET PO SCH (06:00)
[2023-06-21] MEDS ORDERED: FAMOTIDINE 20 MG TAB PO SCH (06:00)
[2023-06-21] MEDS ORDERED: Scopolamine 1 MG TDSY TD SCH (06:00)
[2023-06-21] MEDS ORDERED: TRANEXAMIC ACID 1,000 MG **IV Pre-op IV SCH (06:00)
[2023-06-21] MEDS ORDERED: LR 60ML/HR IV SCH (06:00)
[2023-06-21] MEDS ORDERED: ACETAMINOPHEN 500 MG TAB PO SCH (06:00)
[2023-06-21] MEDS ORDERED: BUPIVACAINE 0.5 % 5 MG/1 ML PF 10ML VIAL ONE (06:21)
[2023-06-21] MEDS ORDERED: ONDANSETRON INJ 2 MG/ML 2 ML VIAL IV PRN ×2 (06:32→10:38)
[2023-06-21] MEDS ORDERED: ePHEDrine sulfate 50 MG/ML AMP IV PRN (06:32)
[2023-06-21] MEDS ORDERED: ATROPINE SULFATE 0.1 MG/ML 10ML SYR IV PRN (06:32)
[2023-06-21] MEDS ORDERED: HYDROmorphone INJ 1 MG/ML SYRINGE IV PRN (06:32)
[2023-06-21] MEDS ORDERED: BUPIVACAINE/EPINEPHRINE 0.5% MPF 1:200,000 30 ML VIAL ONE (06:41)
[2023-06-21] MEDS ORDERED: GLYCOPYRROLATE 0.2 MG/ML VIAL ONE (06:51)
[2023-06-21] MEDS ORDERED: fentaNYL citrate PF 100 MCG/2 ML VIAL ONE ×2 (06:51→08:42)
[2023-06-21] MEDS ORDERED: PROPOFOL IV EMULSION 10 MG/ML 20 ML VIAL IV ONE (06:51)
[2023-06-21] MEDS ORDERED: ONDANSETRON INJ 2 MG/ML 2 ML VIAL ONE (06:51)
[2023-06-21] MEDS ORDERED: MIDAZOLAM HCL 1 MG/ML 2ML VIAL ONE (06:51)
[2023-06-21] MEDS ORDERED: ROCURONIUM BROMIDE 10 MG/ML 5 ML VIAL IV ONE ×10 (06:51→07:38)
[2023-06-21] MEDS ORDERED: LIDOCAINE 2% 2 ML VIAL/AMP(20MG/ML) INFIL ONE (06:51)
[2023-06-21] MEDS ORDERED: DEXAMETHASONE SOD INJ 4 MG/ML VIAL ONE (06:51)
[2023-06-21] MEDS ORDERED: NEOSTIGMINE METHYLSULFATE 1 MG/ML 10ML VIAL ONE (06:51)
--- NOTE | 2023-06-21 06:52 | History & Physical Bridge Note ---
Date of Service June 21, 2023 History & Physical Bridge Note I have examined the patient, reviewed the History & Physical and in the interval since the performance of the History & Physical I have noted the following changes of clinical significance: no changes noted
[2023-06-21] MEDS ORDERED: HYDROmorphone INJ 2 MG/ML SYR/VIAL ONE (07:23)
[2023-06-21] MEDS ORDERED: KETAMINE 50 MG/5 ML SYRINGE ONE (07:36)
[2023-06-21] MEDS ORDERED: SUGAMMADEX SODIUM 200 MG/2 ML VIAL IV ONE (08:33)
--- NOTE | 2023-06-21 09:01 | Operative Report ---
PG Post Operative Report Pre & Post Diagnosis Operation Date: 06/21/23 07:00 Pre-Op Diagnosis: Right Hip Degenerative Joint Disease Post-Op Diagnosis: Right Hip Degenerative Joint Disease I identified the patient and participated in the time-out.: Yes Procedure Operation Date: 06/21/23 07:00 Actual Procedures p Right Total Hip Arthroplasty(Right) - Romeo Seymour MD Surgeon Romeo Seymour MD Resource Agent Zay Smith PA-C Estimated Blood Loss 300 Findings Consistent with Post-Op Diagnosis Operative findings revealed a moderate hip arthritis. He had some cartilage wear but no gross eburnation. He did have a significant joint effusion. More significant acetabular wear. Large soft tissue envelope. Specimens Right femoral head sent for pathology Anesthesia Type General Complications none Disposition Accompanied Patient To Recovery: No Indications Patient is a 47-year-old fairly active gentleman with history of multiple medical issues including a previous kidney transplant. Over the past several years she developed increased pain discomfort in both hips. He has been through extensive conservative treatment which would provide some temporary relief. He did have an intra-articular hip joint injection which helped him for a couple. The hip pain returned. Debilitated by the pain. X-rays show a moderate to advanced hip arthritis. Elective C with total hip arthroplasty. Description of Procedure Operative implants consist of: 1. Biomet G7 size 54 mm acetabular shell. 2. 6.5 cancellous acetabular screws 1 at 35 mm in length and 130 mm length. 3. Seligman hole eliminator. 4. Highly cross-linked polyethylene liner with a 54 mm outer diameter 36 mm inner diameter. 5. DePuy Karaya size 12 KLA femoral stem. 6. +5/36 mm ceramic articular ball. The patient was taken to the operating, identified, and placed on the operating table supine position. Contractors were appropriately padded. IV antibiotics tried by anesthesia team. A general anesthetic was implemented. This was done because the patient stopped his Plavix only about 48 to 72 hours ago and he was very anxious. The patient was then placed in the left lateral decubitus position. Axillary roll was placed. Stulberg hip positioner was used for positioning. The right hip and leg were then prepped and draped in usual sterile fashion. A posterolateral approach to the right hip was then performed through a curvilinear incision centered over the greater trochanter. Sharp dissection was carried through subcutaneous tissue down to the IT band gluteal fascia the IT ba nd gluteal fascia incised longitudinally in line with skin incision. The underlying greater bursa was excised. The piriformis and external rotators along with the posterior hip joint capsule were then released from the posterior aspect hip as a single layer. Hip was internally rotated and dislocated. A femoral neck osteotomy cut was made with Final Cut 15 mm above the lesser trochanter. Femoral head was removed and sent for pathology. The femur was retracted anteriorly. The acetabulum was excised. The pulmonary fat was excised. Sequential reaming the acetabular was then performed again with size 45 and progressing up to 53. I reamed a little bit with a 54 reamer and then placed a 54 mm Biomet G7 acetabular shell in about 40 degrees lateral opening and 20 degrees of anteversion. Was fixed with two 6.5 cancellous acetabular screws. Trial liner was placed. Attention drawn the femur. The proximal femur was entered with a Biom'Up cutter followed by canal finder. Then broached beginning with size 8 and progressing up to a 12. Got excellent fit of the 12. We trialed the hip and the hip was stable into full extension and external rotation and flexion to 90 degrees and internal Tatian over 50 degrees. Leg lengths and soft tissue seem equal. We elect to place these implants. Nupathe all trial implants were removed. Seligman hole eliminator was placed. Highly cross-linked polyethylene liner was placed. A size 12 KLA femoral stem was impacted in position. +5/36 mm ceramic articular ball was placed. Hip was located once again found to be stable. Attention drawn to laith sing. The wound was irrigated coconuts pulsatile lavage solution. I did inject locally with 60 cc of half percent Marcaine with epinephrine. The posterior capsule and external rotators then repaired through drill holes in the posterior trochanter with #2 Tycron suture. The IT band gluteal fascia then closed #1 PDS suture in a running fashion. Subcutaneous tissue then closed with 2 layers the deep layer #2 Vicryl suture and subcutaneous tissue with 2 Dexon suture in buried interrupted fashion. Skin was closed skin cheri. I did place a Prevena VAC dressing due to the large soft tissue envelope. The patient then brought out of general esthesia and transferred to the recovery room in stable condition. Patient tolerated procedure well and no complications. Zay Smith, my physician sales assistant entertainment and media, was present for the entire procedure. Assistance was required for proper patient positioning, prepping and draping, surgical exposure, perform the technical details of the operation, placement implants, closure of the incision site and placement of sterile bandage. I attest to the content of the Intraoperative Record and any orders documented therein. Any exceptions are noted below.
[2023-06-21] MEDS: fentaNYL citrate PF 100 MCG/2 ML VIAL IV PRN ×2 (09:16→09:48)
--- NOTE | 2023-06-21 10:02 | Anesthesiology Progress Note ---
Date of Service June 21, 2023 Anesthesia Post Procedure Vital Signs Vital Signs: Temp Pulse Pulse Resp BP Pulse Ox O2 Del Method 06/21/23 09:50 90 20 162/80 H 96 Room Air 06/21/23 09:40 88 20 153/84 H 94 Room Air 06/21/23 09:30 87 18 151/84 H 93 Room Air 06/21/23 09:20 89 20 161/83 H 94 Room Air 06/21/23 09:10 90 20 164/82 H 95 Room Air 06/21/23 09:00 90 20 150/84 H 99 Oxymask 06/21/23 08:56 97.5 F L 92 H 18 162/78 H 98 Oxymask 06/21/23 05:54 97.7 F 91 H 20 149/87 H 94 Room Air O2 Flow Rate 06/21/23 09:50 06/21/23 09:40 06/21/23 09:30 06/21/23 09:20 06/21/23 09:10 06/21/23 09:00 4 06/21/23 08:56 4 06/21/23 05:54 Pain Intensity Right Hip: Pain Intensity: 7 Transfer of Care Handoff Completed per policy Notes Mental Status: alert / awake / arousable and participated in evaluation Patient Amnestic to Procedure: Yes Nausea / Vomiting: adequately controlled Pain: adequately controlled Airway Patency, RR, SpO2: stable & adequate BP & HR: stable & adequate Hydration State: stable & adequate Anesthetic Complications: no major complications apparent and Pt Satisfied with anesthetic care
[2023-06-21] MEDS ORDERED: METOCLOPRAMIDE HCL INJ 5 MG/ML 2 ML VIAL IV PRN (10:38)
[2023-06-21] MEDS ORDERED: bisacodyL 10 MG SUPP PR PRN (10:38)
[2023-06-21] MEDS ORDERED: SENNA 8.6 MG TAB PO SCH ×2 (10:38→21:00)
[2023-06-21] MEDS ORDERED: ASPIRIN 81 MG ECTAB PO SCH (10:38)
[2023-06-21] MEDS ORDERED: MAGNESIUM HYDROXIDE SUSP 30 ML UDC PO PRN (10:38)
[2023-06-21] MEDS ORDERED: MULTIVITAMIN TAB PO SCH (10:38)
[2023-06-21] MEDS ORDERED: NON-FORMULARY MEDICATION (Docusate Sodium 50 mg Capsule) PO PRN (10:38)
[2023-06-21] MEDS ORDERED: ALUMINUM/MAGNESIUM SUSP 30 ML UDC PO PRN (10:38)
[2023-06-21] MEDS ORDERED: NO NSAIDS SCH (10:38)
[2023-06-21] MEDS ORDERED: NALOXONE HCL 0.4 MG/1 ML VIAL/CARP IV PRN (10:38)
--- NOTE | 2023-06-21 10:46 | XRay Report ---
XR hip 1V RT w pelvis CLINICAL HISTORY: Postoperative evaluation. COMPARISON: Right hip radiographs May 11, 2023. FINDINGS: Alignment of the total right hip arthroplasty is anatomic. There is no periprosthetic frac ture or unexpected radiopaque foreign body. There are 2 acetabular screws. There are skin cheri. IMPRESSION: Expected findings following total right hip arthroplasty. ACT 112: Negative or not required by law. Electronically signed by: Gerardo Parish M.D. 06/21/2023 10:14 AM
[2023-06-21] MEDS: HYDROmorphone INJ 0.5 MG/0.5 ML SYR IV PRN ×3 (11:03→21:29)
[2023-06-21] MEDS: SODIUM CHLORIDE 0.9% 1,000 ML IV SCH ×2 (11:05→23:34)
[2023-06-21] MEDS ORDERED: MELATONIN 3 MG TAB PO PRN (11:18)
[2023-06-21] MEDS: busPIRone 15 MG TAB PO SCH ×2 (11:44→20:46)
[2023-06-21] MEDS: lamoTRIgine 100 MG TAB PO SCH ×2 (11:45→20:44)
[2023-06-21] MEDS: predniSONE 5 MG TAB PO SCH (11:45)
[2023-06-21] MEDS: VERAPAMIL HCL 40 MG TAB PO SCH (11:45)
[2023-06-21] MEDS: DIVALPROEX EXTENDED RELEASE 500 MG TAB PO SCH ×2 (11:45→20:43)
[2023-06-21] MEDS: MYCOPHENOLATE MOFETIL 250 MG CAP PO SCH ×2 (11:46→20:46)
[2023-06-21] MEDS: TACROLIMUS 1 MG CAP PO SCH ×2 (11:47→20:46)
[2023-06-21] MEDS: CALCIUM 600MG + VIT D 400 IU TAB PO SCH (11:49)
[2023-06-21] MEDS: CHOLECALCIFEROL 1,000 UNITS 25 MCG TAB PO SCH (11:49)
[2023-06-21] MEDS: OMEGA-3 (PURIFIED FISH OIL) 1 GM CAP PO SCH (11:49)
[2023-06-21] MEDS: MULTIVITAMIN TAB PO SCH (11:49)
[2023-06-21] MEDS: PANTOprazole 40 MG TAB PO SCH ×2 (12:00→20:47)
[2023-06-21] MEDS: SODIUM BICARBONATE 650 MG TAB PO SCH ×2 (12:44→20:45)
[2023-06-21] MEDS: DOCUSATE SODIUM 100 MG CAP PO SCH ×2 (12:44→20:51)
[2023-06-21] MEDS: FOLIC ACID 1 MG TAB PO SCH (12:44)
[2023-06-21] MEDS: ceFAZolin 2000MG 2,000 MG/15 ML SYR IV SCH ×2 (13:56→23:33)
[2023-06-21] MEDS: ACETAMINOPHEN 500 MG TAB PO SCH ×2 (13:58→20:45)
[2023-06-21] MEDS: oxyCODONE HCL IR 5 MG TAB (IMMEDIATE RELEASE) PO PRN ×2 (14:04→19:42)
[2023-06-21] MEDS ORDERED: TRANEXAMIC ACID / 0.7% NACL 1,000 MG/100 ML BAG IV SCH (15:00)
[2023-06-21] MEDS: Scopolamine CHECK PATCH PLACEMENT SCH (16:19)
[2023-06-21] MEDS: ASCORBIC ACID 500 MG TAB PO SCH (16:20)
[2023-06-21] MEDS ORDERED: LORazepam 1 MG TAB PO STA (17:09)
[2023-06-21] MEDS ORDERED: LORazepam 0.5 MG TAB PO STA (19:17)
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
[2023-06-21] MEDS ORDERED: SERTRALINE HCL 100 MG TABLET PO SCH (21:00)
[2023-06-21] MEDS ORDERED: QUEtiapine FUMARATE 200 MG TAB PO SCH (21:00)
[2023-06-21] MEDS ORDERED: ATORVASTATIN 20 MG TAB PO SCH (21:00)
[2023-06-21] MEDS ORDERED: VERAPAMIL HCL 40 MG TAB PO SCH (21:00)
[2023-06-21] MEDS ORDERED: TAMSULOSIN HCL 0.4 MG CAP PO SCH (21:00)
[2023-06-21] MEDS ORDERED: QUEtiapine FUMARATE 300 MG TABLET PO SCH (21:00)
[2023-06-21] MEDS ORDERED: Nursing to Pharmacy Communication SCH (23:00)
[2023-06-22] MEDS: Scopolamine CHECK PATCH PLACEMENT SCH ×2 (00:15→08:49)
[2023-06-22] MEDS: oxyCODONE HCL IR 5 MG TAB (IMMEDIATE RELEASE) PO PRN ×3 (01:22→12:57)
[2023-06-22] MEDS: HYDROmorphone INJ 0.5 MG/0.5 ML SYR IV PRN ×2 (03:10→06:39)
[2023-06-22 06:47] LABS: Basophils # (auto) 0.01 K/uL (0.00-0.20); Basophils % (auto) 0.1 %; Hematocrit (blood only) 29.3 % (42.0-52.0); Hemoglobin 9.8 g/dl (14.0-18.0); Immature Granulocytes # (auto) 0.03 K/uL (0.01-0.20); Immature Granulocytes % (auto) 0.4 %; Lymphocytes # (auto) 1.23 K/uL (1.20-3.40); Lymphocytes % (auto) 15.9 %; Mean Corpuscular Hemoglobin 28.7 pg (25.0-34.0); Mean Corpuscular Hgb Conc 33.4 g/dL (32.0-36.0); Mean Corpuscular Volume 85.9 fL (80.0-100.0); Mean Platelet Volume 9.8 fL (9.4-12.4); Monocytes % (auto) 23.2 %; Neutrophils # (auto) 4.69 K/uL (1.40-6.50); Neutrophils % (auto) 60.4 %; Platelet Count 171 K/uL (130-400); RDW Standard Deviation 43.7 fL (36.4-46.3); Red Blood Count 3.41 M/uL (4.70-6.10); White Blood Count 7.76 K/ul (4.8-10.8)
--- NOTE | 2023-06-22 07:12 | Surgery Progress Note ---
Date of Service June 22, 2023 Assessment & Plan (1) History of total right hip replacement: Plan: 47-year-old gentleman with multiple medical and psychological issues postop day 1 from right hip replacement doing reasonably well. He is very fidgety and I do not think is doing well in the hospital environment. Pain seems to be reasonably well controlled. He pulled his wound VAC off and its not working. Plan: 1. DVT prophylaxis including thigh-high teds SCDs and back on Eliquis today #2 PT OT weight-bear as tolerated. Right total hip protocol. 3. Pain control doing okay with current pain regimen #4 disposition we will see how therapy goes today. Plan is to discharge to home. His is a physical therapist. I think his best situation will be discharged to home to home environment I think will be more comfortable. Admission and Anticipated Discharge Date Admission Date: June 21, 2023 Subjective 47-year-old gentleman postop day 1 from right hip replacement. He is doing okay. Did report some moderate amount of pain. He is hoping to go home. He is very fidgety. He pulled his wound VAC dressing off this morning. Physical Exam Physical Exam: Physical examination as well as a somewhat fidgety male. He is lying in bed. Looks reasonably comfortable. Examination of the right hip and leg reveals the dressing to be in place but the wound VAC is just making noise where he pulled the vacuum device off the sponge. They tried to tape back on but not working. His thigh is soft and supple. Leg lengths are equal. Hips located. He is neurologically intact. Respiratory: normal respiratory effort, lungs clear to auscultation Gastrointestinal (Abdomen): normal bowel sounds, soft, nontender, no hepatosplenomegaly Results & Data Vital Signs (Past 12 Hours) Vital Signs Temp Pulse Resp BP Pulse Ox O2 Del Method 06/22/23 03:17 36.8 C 86 18 145/88 H 93 Room Air 06/21/23 20:00 Room Air 06/21/23 22:56 36.6 C 101 H 18 112/77 93 Room Air 06/21/23 19:11 37.3 C 85 18 157/85 H 94 Room Air Laboratory Results Hemoglobin is 9.8. Hematocrit 29.3. Electrolytes are pending. PG Care Time/CCT Total # of Minutes Spent Total Time Spent with Patient: Total time spent is greater than 50% in coordination of care (as documented) at patient's floor/unit and/or counseling patient: Coding Level of Care Code 19352 Post Operative Follow-Up Diagnoses History of total right hip replacement Z96.641
[2023-06-22 07:16] LABS: BUN Creatinine Ratio 11.3 (10-20); Calcium 8.4 mg/dl (8.6-10.3); Creatinine Clr Calc Pharmacy 95.6 ml/min; Est GFR (African American) 73.3 ml/min; Est GFR (Non-African American) 63.2 ml/min; Potassium 3.8 mmol/L (3.5-5.1)
[2023-06-22] MEDS ORDERED: dexAMETHasone 10 MG in SYRINGE 0 ML IV SCH (08:00)
[2023-06-22] MEDS: SODIUM BICARBONATE 650 MG TAB PO SCH (08:41)
[2023-06-22] MEDS: MYCOPHENOLATE MOFETIL 250 MG CAP PO SCH (08:41)
[2023-06-22] MEDS: MULTIVITAMIN TAB PO SCH (08:41)
[2023-06-22] MEDS: DOCUSATE SODIUM 100 MG CAP PO SCH (08:41)
[2023-06-22] MEDS: TACROLIMUS 1 MG CAP PO SCH (08:41)
[2023-06-22] MEDS: lamoTRIgine 100 MG TAB PO SCH (08:41)
[2023-06-22] MEDS: CHOLECALCIFEROL 1,000 UNITS 25 MCG TAB PO SCH (08:41)
[2023-06-22] MEDS: CALCIUM 600MG + VIT D 400 IU TAB PO SCH (08:41)
[2023-06-22] MEDS: predniSONE 5 MG TAB PO SCH (08:42)
[2023-06-22] MEDS: busPIRone 15 MG TAB PO SCH (08:42)
[2023-06-22] MEDS: VERAPAMIL HCL 40 MG TAB PO SCH (08:42)
[2023-06-22] MEDS: PANTOprazole 40 MG TAB PO SCH (08:42)
[2023-06-22] MEDS: FOLIC ACID 1 MG TAB PO SCH (08:42)
[2023-06-22] MEDS: DIVALPROEX EXTENDED RELEASE 500 MG TAB PO SCH (08:42)
[2023-06-22] MEDS: ASCORBIC ACID 500 MG TAB PO SCH (08:43)
[2023-06-22] MEDS: OMEGA-3 (PURIFIED FISH OIL) 1 GM CAP PO SCH (08:43)
[2023-06-22] MEDS: ACETAMINOPHEN 500 MG TAB PO SCH (08:43)
[2023-06-22] MEDS ORDERED: APIXABAN 2.5 MG TAB PO SCH (09:00)
--- NOTE | 2023-06-22 10:54 | Billing Data ---
Date of Service June 22, 2023 Coding Level of Care Code 13028 IN/OBS CONSULT LVL 3,45M
--- NOTE | 2023-06-22 13:20 | Hospitalist Progress Note ---
Date of Service June 22, 2023 Assessment & Plan (1) Anxiety: Plan: -Suspect pt's anxiety represents baseline anxiety with exacerbation due to situational anxiety in setting of recent surgery and also received stress steroids with Decadron 10mg IV x 1 -Lower suspicion for organic etiology, medication side effect, delirium, psychosis, etc -Pt did respond well to Ativan PO x1 -continue home meds- Seroquel and Zoloft HS doses scheduled, continue buspirone (2) S/P total right hip arthroplasty: Plan: -Postoperative management, pain control, DVT prophylaxis per orthopedics primary -doing well, pain control, bowel regimen f/u w/ Ortho as outpt (3) Seizures: Plan: -No recent seizures noted -Continue Depakote, Lamictal (4) Depression: Plan: -Continue Zoloft (5) Bilateral pulmonary embolism: Plan: -On Eliquis, continued per orthopedics at preventive dose (6) Kidney replaced by transplant: Plan: -On tacrolimus, Cellcept, chronic prednisone -Continue home medications, no stress dose steroids needed on discharge-received Decadron 10mg IV x 1 (7) Dyslipidemia: Plan: -Continue statin (8) HTN (hypertension): Plan: -BP somewhat elevated due to anxiety and perhaps steroids -Continue Verapamil (9) GERD (gastroesophageal reflux disease): Plan: -Continue omeprazole (10) Schizoaffective disorder: Plan: -Continue Seroquel, Zoloft (11) Post traumatic stress disorder: Plan: -Continue Zoloft (12) Bipolar disorder: Plan: -Continue Seroquel, Lamictal, Depakote Plan DVT prophylaxis: Per orthopedics- Eliquis Disposition: dc to home, medically stable Admission and Anticipated Discharge Date Admission Date: June 21, 2023 Subjective Pt has anxiety but better with ativan since this AM and is ready for discharge. at bedside and no concerns from patient or . Denies lightheadedness, CP, SOB other than pain causing him to get winded with walking he says. He has hot flashes which is normal for him as per . Physical Exam Constitutional: WD/WN, vitals as above Neck: trachea midline, no thyromegaly Respiratory: normal respiratory effort, lungs clear to auscultation Cardiovascular: RRR, no murmur, no edema Skin: no rashes, warm and dry Neurologic: moves all extremities and awake; no focal motor deficits Psychiatric: Orientation: alert, oriented x 3 and cooperative Affect: + anxious affect Mood: + anxious mood Lymphatic: no lymphedema Results & Data Results & Data Vital Signs (Past 12 Hours) Vital Signs Temp Pulse Pulse Resp BP Pulse Ox O2 Del Method 06/22/23 12:27 36.9 C 85 94 H 16 171/92 H 94 06/22/23 08:09 36.9 C 94 H 16 171/92 H 94 Room Air 06/22/23 03:17 36.8 C 86 18 145/88 H 93 Room Air Laboratory Results CBC, BMP reviewed PG Care Time/CCT Total # of Minutes Spent Total Time Spent with Patient: Total time spent is greater than 50% in coordination of care (as documented) at patient's floor/unit and/or counseling patient: Coding Level of Care Code 84926 SUB INP/OBS CARE 10/05MIN Diagnoses Anxiety F41.9 S/P total right hip arthroplasty Z96.641 Seizures R56.9 Depression F32.9 Depression Type: unspecified Bilateral pulmonary embolism I26.99 Kidney replaced by transplant Z94.0 Dyslipidemia E78.5 HTN (hypertension) I10 GERD (gastroesophageal reflux disease) K21.9 Schizoaffective disorder F25.9 Post traumatic stress disorder F43.10 Bipolar disorder F31.9 (4) Depression Depression Type: unspecified Qualified Code(s): F32.9 - Major depressive disorder, single episode, unspecified
[2023-06-24] MEDS ORDERED: [UNRECOGNIZED DRUG - OTHER] SCH (08:00)
--- NOTE | 2023-06-25 08:04 | Discharge Summary ---
Date of Service June 25, 2023 Discharge Data Consultations 06/21/23 15:10 Consult Hospitalist Routine Procedures Performed Operation Date: 06/21/23 07:00 Actual Procedures p Right Total Hip Arthroplasty(Right) - Romeo Seymour MD Hospital Course (1) History of total right hip replacement: This is a 47 year old patient admitted on 06/21/23 and underwent total hip arthroplasty. He tolerated the procedure well and there were no complications. Transferred to the PACU post op and later to the orthopedic floor for further care. He was given ancef for antibiotic prophylaxis. He was also given DEE stockings, SCDs, and eliquis for DVT prophylaxis. Hemoglobin, hematocrit, and vital signs were monitored during his hospital stay and remained stable. Did not require any blood transfusions. There were no complications during his hospital stay. He did have some exacerbation of underlying anxiety and the hospitalist service was consulted for further management. He had pulled off his prevena wound vac post operatively. By post op day #1 the patient was tolerating a regular diet, pain was reasonably controlled with oral pain medicine, and he was participating in physical therapy. On post op day #1 the patient was discharged home and set up with home health care. He was given printed discharge instructions including prescriptions for extra strength tylenol, cefadroxil, zofran, senokot, and oxycodone. Continue hip precautions. Continue physical therapy, weight bearing as tolerated. Continue DEE stockings. Follow up approximately 2 weeks post op or sooner if there are problems or concerns. Coding Level of Care Code None Diagnoses History of total right hip replacement Z96.641
== END 2023-06-22 13:54 | disposition home health service (06) ==
LOC: ASU 05:17 → 3E 05:17